=== PATIENT | female | born 1975 | race Caucasian/White ===

== ENCOUNTER 2020-01-19 22:13 | Inpatient (IN) | payer OTHER ==
[2020-01-20] MEDS ORDERED: NALOXONE 0.4 MG/ML 1 ML VIAL IV PRN (00:16)
[2020-01-20] MEDS ORDERED: ACETAMINOPHEN TAB 325 MG TAB PO PRN (00:16)
[2020-01-20] MEDS ORDERED: MORPHINE SULFATE 4 MG/ML SYRINGE IV PRN (00:16)
[2020-01-20] MEDS ORDERED: PANTOPRAZOLE 40 MG/10 ML VIAL IVP ONE (00:18)
[2020-01-20] MEDS: SODIUM CHLORIDE 0.9% 1,000 ML IV SCH ×3 (00:29→17:22)
[2020-01-20] MEDS: SUCRALFATE 1 GM TAB PO SCH ×4 (01:26→17:23)
--- NOTE | 2020-01-20 02:07 | P.HPIM ---
History of Present Illness H&P Date: 01/20/20 Chief Complaint: abd pain , possible GI bleed 44 year old female with history of Yenny-en-Y gastric bypass 2007, and recurrent gastrojujenal ulcers non compliant with follow ups and PPI patient trasnferred to our facility from [facility] as they are at capacity. patient went to ED today, due to worsening nausea, vomiting, tk, and abd pain abd pain upper abd radiating to the chest in the midline. 10/10 in severity, sharp pain, worse with moving and sitting up. denies any SOB, dizziness, lightheadedness, palpitations. pain is waxing and waning , she takes norco for her recent shoulder surgery, and was helping a little. this is chronic pain comes and goes for months now , but worsened over past week, and got even worse over past 2 days. nausea and vomiting, greenish in color, denies blood or coffee ground vomiting. for 2 days now loose bowel movement for few days now, dark in color. patient also is on her period. she denies taking any blood thinners, denies NSAIDs patient was hospitalized a week ago, and was kept in hospital for 2 days, but GI service cleared her for discharge with plans for OP EGD. patient had 2 EGDS done in August and September 2019, where it showed gastrojujenal marginal ulcer which went down in size , from 1 cm to 0.8 cm , with clean base. patient during this most recent hospitalization at the other facility, patient reported running out of PPI with no refills . H Pylori was tested and negative back in august 2019. patient reports some chills, but denies any urinary symptoms, denies URI symptoms. denies any recent travel, denies any contact with confirmed COVID-[address] of the chest and abd done 01/11/2020 showing thickening of the ascending colon with no inflammatory changes. blood work at [facility] showed stable and slightly improving Hgb of 9.7 gm/dl compared to baseline of 8.5 , with evidence of microcytosis , patient known to have iron deficiency anemia , not tolerating PO iron no leukocytosis lipase unremarkable renal and liver function within normal limits electrolytes within normal limits AAS xray showed non obstructive non specific bowel gas pattern patient received 1 L normal saline at [facility] [place] [facility] patient reported cardiac workup done one year ago with negative stress test, she was having SOB at that time, and has family history of heart disease. she is a smoker. Review of Systems Pertinent positives as noted in HPI. All other systems were reviewed and are negative recent right shoulder surgery for rotator cuff injury secondary to fall. 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; History of Any Multi-Drug Resistant Organisms: None Reported Past Surgical History: Bariatric Surgery, Section, Cholecystectomy, Orthopedic Surgery, Tonsillectomy Additional Past Surgical History / Comment(s): yenny-en-y gastric bypass in 2007, c sec x2.; right shoulder sx x2 december 2019; right bunionectomy Past Anesthesia/Blood Transfusion Reactions: No Reported Reaction Past Psychological History: Anxiety, Depression Smoking Status: Current every day smoker Past Alcohol Use History: None Reported Past Drug Use History: None Reported - Past Family History Brother(s) Family Medical History: Myocardial Infarction ([place]) Mother Additional Family Medical History / Comment(s): recently passed from cardiac issues Medications and Allergies Home Medications Medication Instructions Recorded Confirmed Type Acetaminophen [Tylenol] 500 mg PO Q4H PRN 01/20/20 01/20/20 History Escitalopram [Lexapro] 20 mg PO DAILY 01/20/20 01/20/20 History Esomeprazole Magnesium [NexIUM] 40 mg PO BID 01/20/20 01/20/20 History Hydrocodone/Acetaminophen [[place] 1 tab PO Q6HR PRN 01/20/20 01/20/20 History 10-325] Sucralfate [Carafate] 1 gm PO ACHS 01/20/20 01/20/20 History Allergies Allergy/AdvReac Type Severity Reaction Status Date / Time ciprofloxacin [From Cipro] Allergy Rash/Hives Verified 01/19/20 23:54 Physical Exam Vitals: Vital Signs Temp Pulse Resp BP Pulse Ox 01/20/20 00:56 97.8 F 78 18 111/58 98 Intake and Output 01/19/20 01/19/20 01/20/20 14:59 22:59 06:59 Other: Weight 58 kg Constitutional: patient is in moderate pain , and looks uncomfortable due to abd pain, however, talking full sentences and cooperating with interview and exam Eyes: Anicteric sclerae, moist conjunctiva, Pupils equal round reactive to light ENMT: NC/AT Oropharynx clear, no erythema, no exudates Neck: Supple, FROM, no masses, or JVD No carotid bruits No thyromegaly Lungs: Clear to auscultation, good breath sounds throughout Clear to percussion Normal respiratory effort, no accessory muscle use Cardiovascular: Heart regular in rate and rhythm, No murmurs, gallops, or rubs No peripheral edema Abdominal: Soft diffuse tenderness to palpation mainly over upper part of the abd, no guarding, rebound or rigidity Abdomen moving with respiration Normoactive bowel sounds No hepatomegaly, No splenomegaly No palpable mass No abdominal wall hernia noted Skin: Normal temperature, tone, texture, turgor No induration No subcutaneous nodules No rash, lesions No ulcers Extremities: No digital cyanosis No clubbing Pedal pulses intact and symmetrical Radial pulses intact and symmetrical No calf tenderness Psychiatric: Alert and oriented to person, place and time patient looks in pain fair judgement Neuro Muscles Strength 5/5 in all 4 extremities Sensation to light touch grossly present throughout Cranial nerves II-XII grossly intact No focal sensory deficits Lymphatics: no palpable cervical or supraclavicular , or inguinal lymph nodes Thrombosis Risk Factor Assmnt - Choose All That Apply Any of the Below Risk Factors Present?: Yes Each Factor Represents 1 point: Age 41-60 years, History of prior major surgery (<1month) Each Risk Factor Represents 2 Points: Major surgery Thrombosis Risk Factor Assessment Total Risk Factor Score: 4 Thrombosis Risk Factor Assessment Level: Moderate Risk Assessment and Plan Assessment: 44 year old female with history of Yenny-en-Y gastric bypass 2007, and recurrent gastrojujenal ulcers non compliant with follow ups and PPI. recent surgery in december 2019 for right shoulder rotator cuff injury after sustaining a fall. patient transferred to our facility from [facility] due to reaching capacity. patient comes in due to worsening abd pain, known to have gastrojujenal ulcers, with recent brief hospitalization at [facility] around 01/11/2020 however, cleared by GI for discharge on medical therapy with plans for EGD as OP. suspected GIB due to gastrojujenal ulcers, anticipated length of stay > 2 midnights Assessment gastrointestinal bleeding due to gastrojujenal ulcers chronic microcytic anemia at baseline history of Yenny-en-Y gastric bypass 2007 anxiety and depression family history of cardiac disease, patient had negative stress test one year ago plan monitor Hemoglobin IVF hydration with normal saline PPI IV , 80 mg once, then 40 mg BID continue carafate NPO monitor vital signs closely GI consult avoid NSAIDS morphine for pain PRN zofran PRN for N/V check EKG check troponins repeat morning labs resume home meds for depression Preformed a thorough record review from recent hospitalization [facility] hospitalization 01/11/2020 and todays ER care, as summarized in HPI CODE STATUS:full code DVT prophylaxis: mechanical due to GI bleeding Discussed with: Patient, ER, RN Anticipated length of stay > than [address]: home A total of 70 minutes was spent on the care of this complex patient more than 50% of the time was spent in counseling and care coordination.
[2020-01-20] MEDS: MORPHINE SULFATE 4 MG/ML SYRINGE IV PRN ×7 (02:46→22:39)
[2020-01-20] MEDS: ONDANSETRON 4 MG/2 ML VIAL IVP PRN ×2 (08:26→17:23)
[2020-01-20] MEDS: PANTOPRAZOLE 40 MG/10 ML VIAL IVP SCH ×2 (08:26→20:01)
[2020-01-20 08:27] LABS: Anisocytosis Slight; Basophils % (A) 0 %; Eosinophils % (A) 2 %; HCT 30.2 % (34.0-46.0); HGB 8.7 gm/dL (11.4-16.0); Hypochromasia Marked; Lymphocytes # (A) 0.7 k/uL (1.0-4.8); Lymphocytes % (A) 38 %; MCH 24.4 pg (25.0-35.0); MCHC 28.8 g/dL (31.0-37.0); MCV 84.5 fL (80.0-100.0); Mean Platelet Volume 7.9; Monocytes # (A) 0.2 k/uL (0-1.0); Monocytes % (A) 8 %; Neutrophils % (A) 50 %; Platelet Count 270 k/uL (150-450); RBC 3.57 m/uL (3.80-5.40); WBC 1.9 k/uL (3.8-10.6)
[2020-01-20 08:34] LABS: African American GFR (CKD) >90 (>60 ml/min/1.73 sqM); Anion Gap 4 mmol/L; Blood Urea Nitrogen 6 mg/dL (7-17); Calcium 7.8 mg/dL (8.4-10.2); Carbon Dioxide 21 mmol/L (22-30); Chloride 110 mmol/L (98-107); Glucose 82 mg/dL (74-99); Non-African American GFR(CKD) >90 (>60 ml/min/1.73 sqM); Sodium 135 mmol/L (137-145)
[2020-01-20 08:43] LABS: Poikilocytosis (M) Present
[2020-01-20] MEDS: ESCITALOPRAM 20 MG TAB PO SCH (09:21)
[2020-01-20 09:32] LABS: Bilirubin, Delta 0.3 mg/dL (0.0-0.2); Bilirubin,Unconjugated 0.3 mg/dL (0.0-1.1)
[2020-01-20 09:38] LABS: Albumin 2.9 g/dL (3.5-5.0); Total Bilirubin 0.6 mg/dL (0.2-1.3); Total Protein 5.6 g/dL (6.3-8.2)
[2020-01-20] MEDS: NICOTINE 21MG/24HR PATCH TRANSDERM SCH (11:56)
--- NOTE | 2020-01-20 17:10 | P.PN ---
Progress Note - Text 44-year-old seen earlier today here for likely upper GI bleed due to gastrodedunal ulcers and has a chronic anemia microcytic anemia with a hemoglobin today of 8.7 the patient was seen earlier by GI and the patient reports that she will have a EGD tomorrow. We'll recheck her labs tomorrow and continue to follow.
--- NOTE | 2020-01-20 20:11 | CONS ---
CONSULTATION DATE OF DICTATION: 01/20/2020. REQUESTING PHYSICIAN: Dr. Agustina Layne. REASON FOR CONSULTATION: Epigastric pain, nausea, vomiting, and coffee-ground emesis. HISTORY OF PRESENT ILLNESS: The patient is a 44-year-old, pleasant, white female with history of yenny-en-Y gastric bypass surgery in 2007 and history of recurrent gastrojejunal ulcer diagnosed a year ago who is maintained on Nexium as well as Carafate on an outpatient basis presented to the hospital to [facility] yesterday and she was subsequently transferred because of no bed availability locally. She has been complaining of severe epigastric pain for the last one year duration but has been progressively getting worse since she has been on Nexium and Carafate. However, for the last three or four months pain has been progressively getting worse, mostly in the epigastric area radiating to all of the abdomen associated with nausea and vomiting. She had a few episodes of coffee-ground emesis yesterday and she became concerned, came to the ER and subsequently transferred to this hospital. She complains of black, tarry stools for the last two or three days. Denies any NSAID use. Her last EGD was in August 2019 at [facility] and, according to the ER notes, she was noted to have a 1 cm gastrojejunal marginal ulcer noted. PAST MEDICAL HISTORY: Significant for gastroesophageal reflux disease, history of recurrent peptic ulcer disease. PAST SURGICAL HISTORY: , cholecystectomy, gastric bypass surgery, right bunionectomy, right shoulder surgery, and EGD in September 2019. MEDICATIONS: Medications at home include Tylenol, Lexapro, Nexium, [place], and Carafate. ALLERGIES: CIPRO. SOCIAL HISTORY: Current smoker. No alcohol use. FAMILY HISTORY: Brother had coronary artery disease. Mother cardiac issues. REVIEW OF SYSTEMS: CARDIOPULMONARY: She denies any chest pain or shortness of breath. GENITOURINARY: No hematuria or dysuria. MUSCULOSKELETAL: Unremarkable. PSYCHIATRY: Worsening anxiety lately. NEUROLOGY: Unremarkable. ENT/VISION: Unremarkable. CONSTITUTIONAL: No recent weight loss. No fevers or night sweats. GI: As mentioned above. ENDOCRINE: Unremarkable. PHYSICAL EXAMINATION: She appears comfortable. No apparent distress. VITAL SIGNS: Stable. Blood pressure is 98/58, pulse rate 82, temperature 98.3. HEENT: Unremarkable. Conjunctivae pink. Sclerae anicteric. Oral cavity, no lesions. NECK: No JVD or lymph node enlargement. CHEST: Clear to auscultation. HEART: Regular rate and rhythm. ABDOMEN: Soft. There was tenderness in the epigastric area. Mild tenderness in the periumbilical area and the rest of the abdomen also had mild diffuse tenderness but it was soft. No rebound or rigidity. EXTREMITIES: No pedal edema. SKIN: No rashes. NEUROLOGIC: Alert and oriented x3. No focal deficits. LABS: WBC 11.9, hemoglobin 8.7, platelets are 270. BUN and creatinine are 5 and 0.5 respectively. The rest of the labs are within normal limits. Lipase is normal. IMPRESSION: 1. Severe epigastric pain associated with nausea, vomiting, coffee-ground emesis, and black, tarry stools on and off for the last two weeks duration. She states that she has been having persistent epigastric pain since September of last year. Her last upper endoscopy at [facility] was in September 2019 that showed a 1 cm gastrojejunal ulcer in this lady with history of previous gastric bypass surgery, possibly recurrent peptic ulcer disease is being considered. Hemoglobin is 8.6 g/dL. Her baseline hemoglobin is unknown. 2. History of gastric bypass surgery done in 2007. 3. History of anxiety and depression. RECOMMENDATIONS: 1. Continue with Protonix 40 mg twice daily. 2. Start her on clear liquid diet. 3. Repeat CBC in the morning. 4. We will continue with an upper endoscopy tomorrow. I discussed with the patient risks, benefits, and complications of the procedure and she is agreeable to it. Thank you for this consultation. MMODL / IJN: [id number] /
[2020-01-20 23:15] LABS: % Iron Saturation 4.29 (12.00-45.00); Ferritin 11.8 ng/mL (10.0-291.0)
[2020-01-21] MEDS: MORPHINE SULFATE 4 MG/ML SYRINGE IV PRN ×8 (01:30→22:33)
[2020-01-21] MEDS: SODIUM CHLORIDE 0.9% 1,000 ML IV SCH ×3 (01:32→17:49)
[2020-01-21 06:44] LABS: Anisocytosis Slight; Basophils % (A) 0 %; Eosinophils % (A) 2 %; HCT 28.5 % (34.0-46.0); HGB 8.5 gm/dL (11.4-16.0); Hypochromasia Marked; Lymphocytes # (A) 0.7 k/uL (1.0-4.8); Lymphocytes % (A) 40 %; MCHC 29.9 g/dL (31.0-37.0); MCV 80.3 fL (80.0-100.0); Mean Platelet Volume 7.6; Microcytosis Slight; Monocytes # (A) 0.1 k/uL (0-1.0); Monocytes % (A) 8 %; Neutrophils # (A) 0.8 k/uL (1.3-7.7); Neutrophils % (A) 48 %; Platelet Count 262 k/uL (150-450); RBC 3.55 m/uL (3.80-5.40); RDW 18.5 % (11.5-15.5); WBC 1.7 k/uL (3.8-10.6)
[2020-01-21 06:49] LABS: INR 1.1 (<1.2); Prothrombin Time 11.5 sec (9.0-12.0)
[2020-01-21 06:52] LABS: ALT 6 U/L (4-34); AST 21 U/L (14-36); African American GFR (CKD) >90 (>60 ml/min/1.73 sqM); Albumin 2.7 g/dL (3.5-5.0); Alkaline Phosphatase 73 U/L (38-126); Anion Gap 8 mmol/L; Blood Urea Nitrogen <2 mg/dL (7-17); Calcium 7.9 mg/dL (8.4-10.2); Carbon Dioxide 24 mmol/L (22-30); Chloride 104 mmol/L (98-107); Glucose 77 mg/dL (74-99); Magnesium 1.9 mg/dL (1.6-2.3); Non-African American GFR(CKD) >90 (>60 ml/min/1.73 sqM); Phosphorus 4.1 mg/dL (2.5-4.5); Potassium 3.3 mmol/L (3.5-5.1); Sodium 136 mmol/L (137-145); Total Bilirubin 0.2 mg/dL (0.2-1.3); Total Protein 5.3 g/dL (6.3-8.2)
[2020-01-21] MEDS: SUCRALFATE 1 GM TAB PO SCH ×3 (08:16→17:42)
[2020-01-21] MEDS: NICOTINE 21MG/24HR PATCH TRANSDERM SCH (08:19)
[2020-01-21] MEDS: ESCITALOPRAM 20 MG TAB PO SCH (08:20)
[2020-01-21] MEDS: PANTOPRAZOLE 40 MG/10 ML VIAL IVP SCH ×2 (08:20→20:05)
[2020-01-21] MEDS: ONDANSETRON 4 MG/2 ML VIAL IVP PRN (08:26)
[2020-01-21] MEDS ORDERED: LIDOCAINE 1% INJ 10MG/ML (20 ML MDV) ONE (10:03)
[2020-01-21] MEDS ORDERED: MIDAZOLAM 2 MG/2 ML VIAL ONE (10:03)
[2020-01-21] MEDS ORDERED: PROPOFOL 10 MG/ML 20 ML VIAL IV ONE (10:03)
[2020-01-21] MEDS ORDERED: SODIUM CHLORIDE 0.9% 500 ML 500 ML IV ONE (10:07)
[2020-01-21 10:21] LABS: Poikilocytosis (M) Present
--- NOTE | 2020-01-21 10:23 | P.PCN ---
Date of Procedure: 01/21/20 Procedure(s) Performed: BRIEF HISTORY: Patient is a 44-year-old, pleasant, white female, admitted to the hospital with severe epigastric pain associated with nausea vomiting coffee- ground emesis intermittent black stools for the last 3-4 days duration. Has prior history of gastric bypass rectum and marginal ulcer.. PROCEDURE PERFORMED: Esophagogastroduodenoscopy with dilation of the anastomotic stricture. PREOPERATIVE DIAGNOSIS: Severe epigastric pain/nausea vomiting and coffee-ground emesis. IV sedation per anesthesia. PROCEDURE: After informed consent was obtained, the patient was brought into the endoscopy unit. IV sedation was administered by Anesthesia under continuous monitoring. Initially the Olympus GIF-140 video endoscope was inserted into the mouth. Esophagus intubated without any difficulty. It was gradually advanced into the stomach . There was evidence of gastric pouch noted that appeared normal. There was evidence of previous gastric bypass surgery with Susana-en-Y anastomosis. There was a circumferential ulceration noted at the anastomosis with a tight stricture and the scope could not be advanced to the stricture. At this time I proceeded with balloon dilation using the pyloric balloon and was dilated initially with 10 mm followed by 11 mm and 12 mm in a sequential fashion 60 seconds. Findings with dilation was not able to advance the scope beyond the stricture. At this time the gastric pouch was examined and appeared normal. The scope was then withdrawn into the esophagus. The GE junction was located at 39 cm from the incisors. The esophagus appeared normal. There were no erosions or ulcerations seen and the patient tolerated the procedure well. IMPRESSION: 1. Circumferential ulceration at the Susana-en-Y anastomosis with a tight stricture status post balloon dilation using 10-12 mm TTS balloon as described above. 2. Evidence of previous Susana-en-Y gastric bypass surgery. RECOMMENDATIONS: The findings of this examination were discussed with the patient. At this time she'll be started on clear liquid diet. Continue with Protonix 40 mg twice daily. Repeat labs in the a.m..
[2020-01-21] MEDS: POTASSIUM CHLORIDE 10 MEQ in WATER FOR INJECTION 1 100ML.BAG IVPB SCH ×4 (11:01→16:11)
--- NOTE | 2020-01-21 11:50 | P.PN ---
Subjective Progress Note Date: 01/21/20 Patient is admitted at bedside, complain of nausea and abdominal pain. Serum potassium was 3.3 this morning. Hemoglobin at 8.5. Patient hemodynamically stable scheduled to have EGD later today, Objective - Vital Signs Vital signs: Vital Signs Temp 98.6 F 01/21/20 04:59 Pulse 90 01/21/20 04:59 Resp 18 01/21/20 04:59 BP 95/63 01/21/20 04:59 Pulse Ox 94 L 01/21/20 04:59 Intake & Output 01/20/20 01/21/20 01/21/20 18:59 06:59 18:59 Intake Total 960 1380 200 Balance 960 1380 200 Intake: IV 200 Intake, IV Titration 960 1380 Amount Sodium Chloride 0.9% 1, 960 1380 000 ml @ 120 mls/hr IV . Q8H20M [facility] Rx#:[id number] Other: Voiding Method Toilet Toilet Toilet # Voids 3 1 - Exam Constitutional: No acute distress, conversant, appears uncomfortable Eyes: Anicteric sclerae, moist conjunctiva, no lid-lag, PERRLA ENMT: NC/AT,Oropharynx clear, no erythema, exudates Neck:Supple, FROM, no masses, or JVD, No carotid bruits; No thyromegaly Lungs: Clear to auscultation, Clear to percussion, Normal respiratory effort, no accessory muscle use Cardiovascular: Heart regular in rate and rhythm, No murmurs, gallops, or rubs no peripheral edema Abdominal: Soft tender to palpation in midepigastrium, non distended, no guarding, no rebound or rigidity, Normoactive bowel sounds Skin: Normal temperature, tone, texture, turgor, No induration No subcutaneous nodules, No rash, lesions, No ulcers Extremities:No digital cyanosis No clubbing, Pedal pulses intact and symmetrical Radial pulses intact and symmetrical Normal gait and station, No calf tenderness Psychiatric: Alert and oriented to person, place and time, Appropriate affect Intact judgement Neuro: Muscles Strength 5/5 in all 4 extremities, Sensation to light touch grossly present throughout, Cranial nerves II-XII grossly intact. No focal se nsory deficits - Labs CBC & Chem 7: 01/21/20 05:55 01/21/20 05:55 Labs: Abnormal Lab Results - Last 24 Hours (Table) 01/20/20 01/21/20 01/21/20 Range/Units 13:54 05:55 05:55 WBC 1.7 L (3.8-10.6) k/uL RBC 3.55 L (3.80-5.40) m/uL Hgb 8.5 L (11.4-16.0) gm/dL Hct 28.5 L (34.0-46.0) % MCH 24.0 L (25.0-35.0) pg MCHC 29.9 L (31.0-37.0) g/dL RDW 18.5 H (11.5-15.5) % Neutrophils # 0.8 L (1.3-7.7) k/uL Lymphocytes # 0.7 L (1.0-4.8) k/uL Sodium 136 L (137-145) mmol/L Potassium 3.3 L (3.5-5.1) mmol/L BUN <2 L (7-17) mg/dL Calcium 7.9 L (8.4-10.2) mg/dL Iron 10 L (50-170) ug/dL % Saturation 4.29 L (12.00-45.00) Total Protein 5.3 L (6.3-8.2) g/dL Albumin 2.7 L (3.5-5.0) g/dL Assessment and Plan Assessment: Midepigastric pain and nausea * EGD today showing ulceration at the Susana-en-Y anastomosis with a tight stricture status post balloon dilation History of gastrojejunal ulcers * Continue current pain management * Continue PPI therapy Chronic iron deficiency anemia * Hemoglobin relatively stable at 8.7 * No indication for transfusion at this time Disposition * Appreciate GI recommendations continue clear liquid diet
[2020-01-22] MEDS: SODIUM CHLORIDE 0.9% 1,000 ML IV SCH ×2 (03:18→15:24)
[2020-01-22] MEDS: MORPHINE SULFATE 4 MG/ML SYRINGE IV PRN ×5 (03:18→14:14)
[2020-01-22] MEDS: NICOTINE 21MG/24HR PATCH TRANSDERM SCH (08:44)
[2020-01-22] MEDS: PANTOPRAZOLE 40 MG/10 ML VIAL IVP SCH ×2 (08:45→19:56)
[2020-01-22] MEDS: ESCITALOPRAM 20 MG TAB PO SCH (08:45)
[2020-01-22] MEDS: SUCRALFATE 1 GM TAB PO SCH ×3 (08:45→17:27)
[2020-01-22 08:56] LABS: Anisocytosis Slight; HCT 28.1 % (34.0-46.0); HGB 8.5 gm/dL (11.4-16.0); Hypochromasia Marked; MCH 24.2 pg (25.0-35.0); MCHC 30.1 g/dL (31.0-37.0); MCV 80.6 fL (80.0-100.0); Microcytosis Slight; Platelet Count 234 k/uL (150-450); RBC 3.49 m/uL (3.80-5.40); RDW 18.6 % (11.5-15.5); WBC 2.1 k/uL (3.8-10.6)
[2020-01-22 11:30] VITALS: RESP 16
--- NOTE | 2020-01-22 16:08 | PN ---
PROGRESS NOTE DATE OF DICTATION: 01/22/2020 Patient is a 44-year-old white female who was admitted to the hospital with severe abdominal pain associated with nausea, vomiting for the last 2 days duration. She has history of prior gastric bypass surgery with Susana-en-Y anastomosis. She underwent an EGD yesterday which revealed a recurrent marginal ulcer adjoined by anastomosis with severe stricture to the point that the scope could not be advanced. Dilation was performed using 10 to 12 mm balloon yesterday. Patient is feeling somewhat better. She remains on a clear liquid diet. She still has abdominal pain. No further episodes of nausea, vomiting. PHYSICAL EXAMINATION: Appears comfortable, in no apparent distress. Vital signs are stable. Blood pressure is 107/72, pulse rate 60, temperature 98.2. HEENT: Examination unremarkable, conjunctivae are pink, sclerae nonicteric, oral cavity no lesions. NECK: No JVD or lymph node enlargement. CHEST: Clear to auscultation. HEART: Regular rate and rhythm. ABDOMEN: Soft. Mild tenderness in the epigastric area. Bowel sounds are positive. No organomegaly. EXTREMITIES: No pedal edema. SKIN: No rashes. NEUROLOGIC: Alert and oriented x3. No focal deficits. LABS: From today WBC 15.1, hemoglobin 8.5, platelets normal. Basic metabolic panel is within normal limits. IMPRESSION: 1. Severe epigastric pain/nausea, vomiting, status post EGD done yesterday revealed recurrent anastomotic ulcer with anastomotic stricture at the Susana-en-Y anastomosis, status post balloon dilation with some improvement in her symptoms. 2. Anemia, secondary to gastrointestinal bleed. 3. Chronic abdominal pain. RECOMMENDATIONS: 1. Advance diet as tolerated. 2. Continue with Protonix 40 mg twice daily. 3. Carafate 1 g 4 times daily. 4. Pain medications as needed. 5. Avoid NSAIDs. 6. Patient can be discharged home tomorrow with outpatient followup in 2 weeks at which time, based on the symptoms, will consider repeat upper endoscopy with dilation. Thank you for this consultation. MMODL / IJN: [id number] /
[2020-01-22] MEDS ORDERED: HYDROcodone/APAP 10-325MG 1 EACH TAB PO PRN (17:11)
--- NOTE | 2020-01-22 17:19 | P.PN ---
Subjective Progress Note Date: 01/22/20 Principal diagnosis: Abdominal pain This is a 44-year-old female with history of Susana-en-Y gastric bypass 2007, recurrent gastrojejunal ulcers, noncompliant with follow-up. Patient presented with worsening abdominal pain she will was previously hospitalized in the [facility] [place] [facility] Was Cleared for Outpatient Follow-Up. Patient Was Hospitalized on 01/20 patient underwent EGD that showed stricture and ulceration she states that she is still painful reporting pain 7 out of 10 Objective - Vital Signs Vital signs: Vital Signs Temp 98.2 F 01/22/20 11:29 Pulse 60 01/22/20 11:29 Resp 16 01/22/20 11:29 BP 107/72 01/22/20 11:29 Pulse Ox 98 01/22/20 11:29 Intake & Output 01/21/20 01/22/20 01/22/20 18:59 06:59 18:59 Intake Total 880 1380 960 Balance 880 1380 960 Intake: IV 200 Intake, IV Titration 680 1380 960 Amount Potassium Chloride 10 meq 200 In Water For Injection 1 100ml.bag @ 100 mls/hr IVPB Q1HR [facility] Rx#: [id number] Sodium Chloride 0.9% 1, 480 1380 960 000 ml @ 120 mls/hr IV . Q8H20M [facility] Rx#:[id number] Other: Voiding Method Toilet Toilet Toilet # Voids 1 - Constitutional General appearance: Present: cooperative, mild distress - Respiratory Respiratory: bilateral: CTA - Cardiovascular Rhythm: regular - Gastrointestinal General gastrointestinal: Present: normal bowel sounds, tenderness - Integumentary Integumentary: Present: normal - Psychiatric Psychiatric: Present: appropriate affect - Labs CBC & Chem 7: 01/22/20 08:24 01/21/20 05:55 Labs: Abnormal Lab Results - Last 24 Hours (Table) 01/22/20 Range/Units 08:24 WBC 2.1 L (3.8-10.6) k/uL RBC 3.49 L (3.80-5.40) m/uL Hgb 8.5 L (11.4-16.0) gm/dL Hct 28.1 L (34.0-46.0) % MCH 24.2 L (25.0-35.0) pg MCHC 30.1 L (31.0-37.0) g/dL RDW 18.6 H (11.5-15.5) % Assessment and Plan (1) GI bleed Narrative/Plan: Secondary to recurrent gastrojejunal ulcers with stricture status post dilation. Patient underwent endoscopy on January 21. She is currently having her diet advanced and on Carafate and PPI. Discuss overall plan patient she still is painful on [place] will change to Dilaudid optimize pain control discharge planning Peptic ulcer disease disease: Continue as above Anemia: Iron deficiency check CBC no need for transfusion at this time Disposition: Optimize pain control discharge planning Current Visit: Yes Status: Acute Code(s): K92.2 - GASTROINTESTINAL HEMORRHAGE, UNSPECIFIED SNOMED Code(s): 52047802
[2020-01-22] MEDS: HYDROmorphone 1 MG/ML 1 ML SYRINGE IVP PRN ×2 (17:26→21:17)
[2020-01-22] MEDS ORDERED: NON FORMULARY DRUG (Esomeprazole Magnesium [Nexium] 40 MG) PO SCH (21:00)
[2020-01-23] MEDS: SODIUM CHLORIDE 0.9% 1,000 ML IV SCH ×2 (02:08→05:24)
[2020-01-23] MEDS: HYDROmorphone 1 MG/ML 1 ML SYRINGE IVP PRN ×3 (02:08→10:07)
[2020-01-23 06:08] VITALS: BP 110/56; PULSE 70; TEMP 98
[2020-01-23 06:46] LABS: Anisocytosis Slight; Basophils % (A) 0 %; Eosinophils # (A) 0.1 k/uL (0-0.7); Eosinophils % (A) 4 %; HCT 28.9 % (34.0-46.0); HGB 8.5 gm/dL (11.4-16.0); Hypochromasia Marked; Lymphocytes # (A) 1.1 k/uL (1.0-4.8); Lymphocytes % (A) 52 %; MCH 23.9 pg (25.0-35.0); MCHC 29.4 g/dL (31.0-37.0); MCV 81.3 fL (80.0-100.0); Mean Platelet Volume 7.5; Monocytes # (A) 0.1 k/uL (0-1.0); Monocytes % (A) 6 %; Neutrophils # (A) 0.8 k/uL (1.3-7.7); Neutrophils % (A) 38 %; Platelet Count 252 k/uL (150-450); RBC 3.55 m/uL (3.80-5.40); RDW 18.1 % (11.5-15.5)
[2020-01-23] MEDS: SUCRALFATE 1 GM TAB PO SCH (08:47)
[2020-01-23] MEDS: NICOTINE 21MG/24HR PATCH TRANSDERM SCH (08:47)
[2020-01-23] MEDS: ESCITALOPRAM 20 MG TAB PO SCH (08:47)
[2020-01-23] MEDS: PANTOPRAZOLE 40 MG/10 ML VIAL IVP SCH (08:47)
--- NOTE | 2020-01-23 18:33 | P.DS ---
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 Patient was transferred from [facility] as they work capacity. Patient was seen and taken for EGD secondary to nausea and vomiting melena or abdominal pain. Patient described a recent hospitalization and at that time she will there was plan for her to have an outpatient EGD. Patient also had EGDs in August and September 2019. 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 The EGD showed circumferential ulceration of the Susana-en-Y anastomosis with a tight stricture status post balloon dilation with evidence of previous Susana-en-Y gastric bypass surgery. Patient was then started on a liquid diet and to continue with Protonix 40 mg daily patient that was advanced she still complains of nausea and some abdominal pain however she was seen by mom today she wanted to go home she is to follow up with her primary physician with gastroneurology as an outpatient. Patient was given 3 days' supply of Percocet she was given 20 pills Assessment: Patient is alert and oriented times spent in the day of discharge 35 minutes Pertinent Studies: EGD with dilation Patient Condition at Discharge: Stable Plan - Discharge Summary Discharge Rx Participant: No New Discharge Prescriptions: No Action Escitalopram [Lexapro] 20 mg PO DAILY Acetaminophen [Tylenol] 500 mg PO Q4H PRN PRN Reason: Pain Esomeprazole Magnesium [NexIUM] 40 mg PO BID Sucralfate [Carafate] 1 gm PO ACHS Hydrocodone/Acetaminophen [[place] 10-325] 1 tab PO Q6HR PRN PRN Reason: Mild To Moderate Pain Discharge Medication List Acetaminophen [Tylenol] 500 mg PO Q4H PRN 01/20/20 [History] Escitalopram [Lexapro] 20 mg PO DAILY 01/20/20 [History] Esomeprazole Magnesium [NexIUM] 40 mg PO BID 01/20/20 [History] Hydrocodone/Acetaminophen [[place] 10-325] 1 tab PO Q6HR PRN 01/20/20 [History] Sucralfate [Carafate] 1 gm PO ACHS 01/20/20 [History] Follow up Appointment(s)/Referral(s): Beth Mendoza MD [STAFF PHYSICIAN] - 02/02/20 11:00 am Patient Instructions/Handouts: Oxycodone/Acetaminophen (By mouth), Peptic Ulcer (DC), Gastrointestinal Bleeding (DC) Discharge Disposition: HOME SELF-CARE
== END 2020-01-23 11:09 | disposition home or self-care (01) | DRG 379 ==
LOC: 5NMEDONC 23:47
PROVIDERS: ADMIT Internal Medicine; ATTEND Internal Medicine
PROC: 0D7A8ZZ Dilation of Jejunum, Via Natural or Artificial Opening Endoscopic (ICD-10-PCS; principal; 2020-01-21 09:20)
PROC: 0D768ZZ Dilation of Stomach, Via Natural or Artificial Opening Endoscopic (ICD-10-PCS; principal; 2020-01-21 09:20)
DX: K28.4 Chronic or unspecified gastrojejunal ulcer with hemorrhage (principal); D50.0 Iron deficiency anemia secondary to blood loss (chronic); F17.210 Nicotine dependence, cigarettes, uncomplicated; F32.9 Major depressive disorder, single episode, unspecified; F41.9 Anxiety disorder, unspecified; G89.29 Other chronic pain; J44.9 Chronic obstructive pulmonary disease, unspecified; Z79.899 Other long term (current) drug therapy; Z82.49 Family history of ischemic heart disease and other diseases of the circulatory system; Z87.11 Personal history of peptic ulcer disease; Z91.19 Patient's noncompliance with other medical treatment and regimen; Z98.84 Bariatric surgery status; Z90.49 Acquired absence of other specified parts of digestive tract
CPT/HCPCS: 43245; 80048; 80053; 80076; 81025; 82728; 83540; 83550; 83690; 83735; 84100; 84484; 85025; 85027; 85610; 93005

== ENCOUNTER 2020-01-28 14:25 | Inpatient (IN) | payer OTHER ==
[2020-01-28] MEDS ORDERED: SODIUM CHLORIDE 0.9% 500 ML 500 ML IV STA (15:30)
[2020-01-28] MEDS ORDERED: SODIUM CHLORIDE 0.9% 1,000 ML IV STA (15:30)
[2020-01-28] MEDS ORDERED: PANTOPRAZOLE 40 MG/10 ML VIAL IVP STA (15:52)
[2020-01-28] MEDS ORDERED: HYDROmorphone 0.5 MG/0.5 ML SYRINGE IVP STA ×3 (15:53→18:56)
[2020-01-28] MEDS ORDERED: ONDANSETRON 4 MG/2 ML VIAL IVP STA ×2 (16:24→18:16)
[2020-01-28 16:45] LABS: Anisocytosis Slight; Basophils % (A) 0 %; Eosinophils % (A) 0 %; HCT 36.8 % (34.0-46.0); HGB 10.6 gm/dL (11.4-16.0); Hypochromasia Marked; Lymphocytes % (A) 34 %; MCH 23.1 pg (25.0-35.0); MCHC 28.7 g/dL (31.0-37.0); MCV 80.3 fL (80.0-100.0); Mean Platelet Volume 7.6; Microcytosis Slight; Monocytes # (A) 0.2 k/uL (0-1.0); Monocytes % (A) 7 %; Neutrophils # (A) 1.7 k/uL (1.3-7.7); Neutrophils % (A) 57 %; Platelet Count 273 k/uL (150-450); RBC 4.58 m/uL (3.80-5.40); RDW 18.3 % (11.5-15.5)
[2020-01-28] MEDS ORDERED: METOCLOPRAMIDE 5 MG/ML 2 ML VIAL IVP STA (16:51)
[2020-01-28 16:54] LABS: ALT 9 U/L (4-34); AST 24 U/L (14-36); African American GFR (CKD) >90 (>60 ml/min/1.73 sqM); Albumin 3.8 g/dL (3.5-5.0); Alkaline Phosphatase 93 U/L (38-126); Amylase 44 U/L (30-110); Anion Gap 10 mmol/L; Blood Urea Nitrogen 14 mg/dL (7-17); Calcium 8.8 mg/dL (8.4-10.2); Carbon Dioxide 25 mmol/L (22-30); Chloride 102 mmol/L (98-107); Glucose 95 mg/dL (74-99); Non-African American GFR(CKD) >90 (>60 ml/min/1.73 sqM); Potassium 3.1 mmol/L (3.5-5.1); Sodium 137 mmol/L (137-145); Total Bilirubin 0.5 mg/dL (0.2-1.3); Total Protein 6.7 g/dL (6.3-8.2)
[2020-01-28] MEDS ORDERED: POTASSIUM CHLORIDE 20 MEQ in WATER FOR INJECTION 1 100ML.BAG IVPB STA (18:15)
--- NOTE | 2020-01-28 18:16 | ED ---
Abdominal Pain HPI - General Chief Complaint: Abdominal Pain Stated Complaint: NAUSEA Time Seen by Provider: 01/28/20 15:24 Source: patient Mode of arrival: wheelchair Limitations: no limitations - History of Present Illness Initial Comments: 44-year-old female presented for nausea. Patient states she has had uncontrolled nausea and vomiting consistently now for the past 2 weeks. She states after her discharge things seem to get worse. She did have a ballooning of a stricture near the duodenal jejunal area of the small intestines. Patient states she was told by Kelly that this may not have worked. She had appointment scheduled for 2 weeks from now for reevaluation however patient states she can now no longer tolerate any oral food or water, and is experiencing significant epigastric pain that seems to radiate to the left. patient admits to having dark stools. She denies bright red blood in her stools. Patient denies emesis. Patient denies any fevers cough or upper respiratory symptoms. Denies chest pain or shortness of breath. Denies arm or jaw pain. Patient states she has had diarrhea. Remaining review of systems negative upon arrival patient appears uncomfortable and is vomiting. - Related Data Home Medications Medication Instructions Recorded Confirmed Escitalopram [Lexapro] 20 mg PO DAILY 01/20/20 01/28/20 Esomeprazole Magnesium [NexIUM] 40 mg PO BID 01/20/20 01/28/20 Hydrocodone/Acetaminophen [[place] 1 tab PO Q6HR PRN 01/20/20 01/28/20 10-325] Sucralfate [Carafate] 1 gm PO ACHS 01/20/20 01/28/20 Allergies Allergy/AdvReac Type Severity Reaction Status Date / Time ciprofloxacin [From Cipro] Allergy Rash/Hives Verified 01/28/20 19:24 Review of Systems ROS Statement: Those systems with pertinent positive or pertinent negative responses have been documented in the HPI. ROS Other: All systems not noted in ROS Statement are negative. 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; History of Any Multi-Drug Resistant Organisms: None Reported Past Surgical History: Bariatric Surgery, Section, Cholecystectomy, Orthopedic Surgery, Tonsillectomy Additional Past Surgical History / Comment(s): yenny-en-y gastric bypass in 2007, c sec x2.; right shoulder sx x2 december 2019; right bunionectomy Past Anesthesia/Blood Transfusion Reactions: No Reported Reaction Past Psychological History: Anxiety, Depression Smoking Status: Current every day smoker Past Alcohol Use History: None Reported Past Drug Use History: None Reported - Past Family History Brother(s) Family Medical History: Myocardial Infarction ([place]) Mother Additional Family Medical History / Comment(s): recently passed from cardiac issues General Exam - General Exam Comments Initial Comments: General: The patient is awake and alert, appears uncomfortable Eye: Pupils are equal, round and reactive to light, extra-ocular movements are intact. No nystagmus. There is normal conjunctiva bilaterally. No signs of icterus. Ears, nose, mouth and throat: There are moist mucous membranes and no oral lesions. Neck: The neck is supple, there is no tenderness or JVD. Cardiovascular: There is a regular rate and rhythm. No murmur, rub or gallop is appreciated. Respiratory: Lungs are clear to auscultation, respirations are non-labored, breath sounds are equal. No wheezes, stridor, rales, or rhonchi. Gastrointestinal: Soft, non-distended, tender to palpation of the epigastrric region of the abdomen without masses or organomegaly noted. There is no rebound or guarding present. Musculoskeletal: Normal ROM, no tenderness. Strength 5/5. Sensation intact. Radial pulses equal bilaterally 2+. Neurological: A&O x 3. CN II-XII intact grossly, There are no obvious motor or sensory deficits. Coordination appears grossly intact. Speech is normal. Skin: Skin is warm and dry and no rashes or lesions are noted. Psychiatric: Cooperative, appropriate mood & affect, normal judgment. Limitations: no limitations Course Vital Signs 01/28/20 01/28/20 01/28/20 14:45 16:53 18:00 Temperature 98.5 F Pulse Rate 77 88 54 L Respiratory 18 18 18 Rate Blood Pressure 105/69 121/87 101/59 O2 Sat by Pulse 99 97 97 Oximetry 01/28/20 19:03 Temperature Pulse Rate 60 Respiratory 16 Rate Blood Pressure 94/60 O2 Sat by Pulse 96 Oximetry Medical Decision Making - Medical Decision Making 44yo presenting for cc of abdominal pain. Leukopenia. Patient has elevated lipase. Otherwise transaminases within normal limits no elevation of alkaline phosphatase. Patient has no fever. No evidence of obstruction on KUB. Patient passing loose stools. Uncontrolled vomiting in the emergency department despite antibiotics. As well as intractable pain despite multiple doses of IV analg esics. Patient will be admitted for GI consultation, IV fluids for dehydration and pain/nausea/vomiting symptomatic management. Patient is agreeable to admission as is Dr. Barkley who spoke with admitting provider. - Lab Data Result diagrams: 01/28/20 16:25 01/28/20 16:25 Lab Results 01/28/20 01/28/20 01/28/20 Range/Units 16:25 16:25 17:59 WBC 3.0 L (3.8-10.6) k/uL RBC 4.58 (3.80-5.40) m/uL Hgb 10.6 L (11.4-16.0) gm/dL Hct 36.8 (34.0-46.0) % MCV 80.3 (80.0-100.0) fL MCH 23.1 L (25.0-35.0) pg MCHC 28.7 L (31.0-37.0) g/dL RDW 18.3 H (11.5-15.5) % Plt Count 273 (150-450) k/uL Neutrophils % 57 % Lymphocytes % 34 % Monocytes % 7 % Eosinophils % 0 % Basophils % 0 % Neutrophils # 1.7 (1.3-7.7) k/uL Lymphocytes # 1.0 (1.0-4.8) k/uL Monocytes # 0.2 (0-1.0) k/uL Eosinophils # 0.0 (0-0.7) k/uL Basophils # 0.0 (0-0.2) k/uL Hypochromasia Marked Anisocytosis Slight Microcytosis Slight Sodium 137 (137-145) mmol/L Potassium 3.1 L (3.5-5.1) mmol/L Chloride 102 (98-107) mmol/L Carbon Dioxide 25 (22-30) mmol/L Anion Gap 10 mmol/L BUN 14 (7-17) mg/dL Creatinine 0.50 L (0.52-1.04) mg/dL Est GFR (CKD-EPI)AfAm >90 (>60 ml/min/1.73 sqM) Est GFR (CKD-EPI)NonAf >90 (>60 ml/min/1.73 sqM) Glucose 95 (74-99) mg/dL Calcium 8.8 (8.4-10.2) mg/dL Total Bilirubin 0.5 (0.2-1.3) mg/dL AST 24 (14-36) U/L ALT 9 (4-34) U/L Alkaline Phosphatase 93 (38-126) U/L Total Protein 6.7 (6.3-8.2) g/dL Albumin 3.8 (3.5-5.0) g/dL Amylase 44 (30-110) U/L Lipase 309 H (23-300) U/L Urine Color Urine Appearance (Clear) Urine pH (5.0-8.0) Ur Specific [place] (1.001-1.035) Urine Protein (Negative) Urine Glucose (UA) (Negative) Urine Ketones (Negative) Urine Blood (Negative) Urine Nitrite (Negative) Urine Bilirubin (Negative) Urine Urobilinogen (<2.0) mg/dL Ur Leukocyte Esterase (Negative) Urine RBC (0-5) /hpf Urine WBC (0-5) /hpf Ur Squamous Epith Cells (0-4) /hpf Urine Bacteria (None) /hpf Urine Mucus (None) /hpf Urine HCG, Qual (Not Detectd) Stool Occult Blood Negative (Negative) 01/28/20 01/28/20 Range/Units 18:50 18:50 WBC (3.8-10.6) k/uL RBC (3.80-5.40) m/uL Hgb (11.4-16.0) gm/dL Hct (34.0-46.0) % MCV (80.0-100.0) fL MCH (25.0-35.0) pg MCHC (31.0-37.0) g/dL RDW (11.5-15.5) % Plt Count (150-450) k/uL Neutrophils % % Lymphocytes % % Monocytes % % Eosinophils % % Basophils % % Neutrophils # (1.3-7.7) k/uL Lymphocytes # (1.0-4.8) k/uL Monocytes # (0-1.0) k/uL Eosinophils # (0-0.7) k/uL Basophils # (0-0.2) k/uL Hypochromasia Anisocytosis Microcytosis Sodium (137-145) mmol/L Potassium (3.5-5.1) mmol/L Chloride (98-107) mmol/L Carbon Dioxide (22-30) mmol/L Anion Gap mmol/L BUN (7-17) mg/dL Creatinine (0.52-1.04) mg/dL Est GFR (CKD-EPI)AfAm (>60 ml/min/1.73 sqM) Est GFR (CKD-EPI)NonAf (>60 ml/min/1.73 sqM) Glucose (74-99) mg/dL Calcium (8.4-10.2) mg/dL Total Bilirubin (0.2-1.3) mg/dL AST (14-36) U/L ALT (4-34) U/L Alkaline Phosphatase (38-126) U/L Total Protein (6.3-8.2) g/dL Albumin (3.5-5.0) g/dL Amylase (30-110) U/L Lipase (23-300) U/L Urine Color Yellow Urine Appearance Cloudy H (Clear) Urine pH 6.5 (5.0-8.0) Ur Specific [place] 1.042 H (1.001-1.035) Urine Protein 1+ H (Negative) Urine Glucose (UA) Negative (Negative) Urine Ketones 4+ H (Negative) Urine Blood Negative (Negative) Urine Nitrite Negative (Negative) Urine Bilirubin 1+ H (Negative) Urine Urobilinogen 3.0 (<2.0) mg/dL Ur Leukocyte Esterase Moderate H (Negative) Urine RBC 5 (0-5) /hpf Urine WBC 16 H (0-5) /hpf Ur Squamous Epith Cells 6 H (0-4) /hpf Urine Bacteria Rare H (None) /hpf Urine Mucus Many H (None) /hpf Urine HCG, Qual Not Detected (Not Detectd) Stool Occult Blood (Negative) Disposition Clinical Impression: Intractable abdominal pain, Intractable vomiting, Dehydration, Diarrhea, Hypokalemia Disposition[facility] Condition: Stable Is patient prescribed a controlled substance at d/c from ED?: No Time of Disposition: 20:15 Decision to Admit Reason: Admit from EC Decision Date: 01/28/20 Decision Time: 20:15
--- NOTE | 2020-01-28 18:50 | XR ---
EXAMINATION TYPE: XR KUB DATE OF EXAM: 01/28/2020 COMPARISON: NONE HISTORY: Pain TECHNIQUE: Single supine KUB image of the abdomen is obtained FINDINGS: Small bowel demonstrates no evidence for dilatation or air fluid levels. Gas and fecal material is seen in non-distended colon. No convincing evidence for pneumoperitoneum. No unusual calcifications. The lung bases are clear. The osseous structures are intact. IMPRESSION: 1. Overall nonobstructive bowel gas pattern.
[2020-01-28] MEDS ORDERED: NALOXONE 0.4 MG/ML 1 ML VIAL IV PRN (19:02)
[2020-01-28] MEDS ORDERED: SODIUM CHLORIDE 0.9% 1,000 ML IV ONE (19:03)
[2020-01-28 19:05] LABS: Appearance,Urine Cloudy (Clear); Bacteria,Urine Rare /hpf; Bilirubin,Urine 1+ (Negative); Blood,Urine Negative (Negative); Color,Urine Yellow; Glucose,Urine (UA) Negative (Negative); Ketones,Urine 4+ (Negative); Leukocyte Esterase,Urine Moderate (Negative); Mucus,Urine Many /hpf; Nitrite,Urine Negative (Negative); PH, Urine 6.5 (5.0-8.0); Protein,Urine 1+ (Negative); RBC,Urine 5 /hpf (0-5); Specific Gravity,Urine 1.042 (1.001-1.035); Squamous Epithelial Cell,Urine 6 /hpf (0-4); WBC,Urine 16 /hpf (0-5)
[2020-01-28] MEDS: SODIUM CHLORIDE 0.9% 1,000 ML IV SCH (20:53)
[2020-01-28] MEDS ORDERED: MORPHINE SULFATE 2 MG/ML SYRINGE IVP PRN (23:01)
[2020-01-29] MEDS: MORPHINE SULFATE 2 MG/ML SYRINGE IVP PRN ×5 (01:05→11:54)
[2020-01-29] MEDS: SODIUM CHLORIDE 0.9% 1,000 ML IV SCH ×2 (03:54→07:57)
--- NOTE | 2020-01-29 04:51 | P.HPIM ---
History of Present Illness H&P Date: 01/28/20 Patient is a 44-year-old female with a PMH of Susana-en-Y gastric bypass in 2007, chronic anemia, gastric ulcers, and history of GI bleeding presented to the hospital with complaints of abdominal pain, nausea, vomiting, and diarrhea. Of note, the patient was recently admitted to [facility] for similar complaints and underwent an EGD which revealed ulceration at the anastomosis with a tight stricture status post balloon dilatation. GI had recommended liquid diet and Protonix and the patient was subsequently discharged. The patient notes that despite adherence to the medications and dietary changes, she continues to have abdominal pain, epigastric, 8/10, radiating to the left upper quadrant, burning in nature, with associated vomiting and diarrhea. Patient notes that her symptoms essentially persisted from the time of her discharge. The patient otherwise denied dysuria, chest pain, shortness of breath, fever, chills, cough, dizziness, headache, or visual disturbances. She underwent an extensive evaluation in the emergency room with KUB unremarkable, laboratory evaluation showing WBC count of 3.0, hemoglobin 10.6, platelets 273, sodium 137, potassium 3.1, BUN 14, creatinine 0.5, and lipase 29. The patient is being admitted to the medicine service for further management and GI consult. Review of Systems Pertinent positives and negatives as discussed in HPI, a complete review of systems was performed and all other systems are negative. 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 History of Any Multi-Drug Resistant Organisms: None Reported Past Surgical History: Bariatric Surgery, Section, Cholecystectomy, Orthopedic Surgery, Tonsillectomy Additional Past Surgical History / Comment(s): susana-en-y gastric bypass in 2007, c sec x2.; right shoulder sx x2 december 2019; right bunionectomy Past Anesthesia/Blood Transfusion Reactions: No Reported Reaction Past Psychological History: Anxiety, Depression Smoking Status: Current every day smoker Past Alcohol Use History: None Reported Past Drug Use History: None Reported - Past Family History Brother(s) Family Medical History: Myocardial Infarction ([place]) Mother Additional Family Medical History / Comment(s): recently passed from cardiac issues Medications and Allergies Home Medications Medication Instructions Recorded Confirmed Type Escitalopram [Lexapro] 20 mg PO DAILY 01/20/20 01/28/20 History Esomeprazole Magnesium [NexIUM] 40 mg PO BID 01/20/20 01/28/20 History Hydrocodone/Acetaminophen [[place] 1 tab PO Q6HR PRN 01/20/20 01/28/20 History 10-325] Sucralfate [Carafate] 1 gm PO ACHS 01/20/20 01/28/20 History Allergies Allergy/AdvReac Type Severity Reaction Status Date / Time ciprofloxacin [From Cipro] Allergy Rash/Hives Verified 01/28/20 19:24 Physical Exam Vitals: Vital Signs Temp Pulse Pulse Resp BP BP Pulse Ox 01/28/20 21:47 97.8 F 69 18 129/63 95 01/28/20 20:55 98 F 64 18 116/67 97 01/28/20 20:53 98 F 64 18 116/67 97 01/28/20 19:03 60 16 94/60 96 01/28/20 18:00 54 L 18 101/59 97 01/28/20 16:53 88 18 121/87 97 01/28/20 14:45 98.5 F 77 18 105/69 99 Intake and Output 01/28/20 01/28/20 01/29/20 14:59 22:59 06:59 Other: Weight 63.503 kg 63.503 kg General: Uncomfortable-appearing female, non toxic, appears at stated age, normal weight Derm: no unusual rashes/lesions no unusual ecchymoses, warm, dry Head: atraumatic, normocephalic, symmetric Eyes: EOMI, no lid lag, anicteric sclera, pupils equal round reactive to light ENT: Nose and ears atraumatic, no thrush, no pharyngeal erythema Neck: No thyromegaly, no cervical lymphadenopathy, trachea midline, supple Mouth: no lip lesion, mucus membranes moist Cardiovascular: S1S2 reg, no murmur, positive posterior tibial pulse bilateral, no edema, capillary refill less than 2 seconds Lungs: CTA bilateral, no rhonchi, no rales , no accessory muscle use Abdominal: soft, mild epigastric tenderness to palpation, no guarding, no appreciable organomegaly, normal bowel sounds Ext: no gross muscle atrophy, muscle strength 5 out of 5 in all 4 extremities grossly, no contractures, Neuro: CN II-XI grossly intact, light touch intact all 4 extremities, finger to nose within normal limits, Psych: Alert, oriented, appropriate affect Results CBC & Chem 7: 01/28/20 16:25 01/28/20 16:25 Labs: Abnormal Lab Results - Last 24 Hours (Table) 01/28/20 01/28/20 01/28/20 Range/Units 16:25 16:25 18:50 WBC 3.0 L (3.8-10.6) k/uL Hgb 10.6 L (11.4-16.0) gm/dL MCH 23.1 L (25.0-35.0) pg MCHC 28.7 L (31.0-37.0) g/dL RDW 18.3 H (11.5-15.5) % Potassium 3.1 L (3.5-5.1) mmol/L Creatinine 0.50 L (0.52-1.04) mg/dL Lipase 309 H (23-300) U/L Urine Appearance Cloudy H (Clear) Ur Specific [place] 1.042 H (1.001-1.035) Urine Protein 1+ H (Negative) Urine Ketones 4+ H (Negative) Urine Bilirubin 1+ H (Negative) Ur Leukocyte Esterase Moderate H (Negative) Urine WBC 16 H (0-5) /hpf Ur Squamous Epith Cells 6 H (0-4) /hpf Urine Bacteria Rare H (None) /hpf Urine Mucus Many H (None) /hpf Thrombosis Risk Factor Assmnt - Choose All That Apply Any of the Below Risk Factors Present?: Yes Each Factor Represents 1 point: Abnormal pulmonary function (COPD), Age 41-60 years Other Risk Factors: No Thrombosis Risk Factor Assessment Total Risk Factor Score: 2 Thrombosis Risk Factor Assessment Level: Low Risk Assessment and Plan Plan: Abdominal pain with nausea/vomiting likely due to ongoing stricture -The patient had reportedly contacted Dr. Mendoza who had advised the patient that the stricture ballooning may not have worked -GI consult -Nothing by mouth for now -Anti-medics -IV fluids -Pain control -Protonix Diarrhea, unclear etiology -Patient notes that this is acute -Continue with IV fluids for now -GI consulted Hypokalemia -Replace and monitor Chronic normocytic anemia -At baseline -Monitor CBC Abnormal UA -Patient denied dysuria -Hold off on antibiotics at this time DVT prophylaxis -IPCDs The patient is admitted with an anticipated greater than 2 midnight stay for evaluation of abdominal pain CODE STATUS: Full Code Discussed with: Patient Anticipated discharge date: 2-[address]: Home A total of 40 minutes was spent on the care of this complex patient more than 50% of the time was spent in counseling and care coordination.
[2020-01-29] MEDS ORDERED: POTASSIUM CHLORIDE ER 20 MEQ TAB.ER PO SCH (06:00)
[2020-01-29 07:03] LABS: Anisocytosis Slight; Hypochromasia Marked; MCH 23.9 pg (25.0-35.0); MCHC 29.3 g/dL (31.0-37.0); MCV 81.7 fL (80.0-100.0); Platelet Count 184 k/uL (150-450); RBC 3.43 m/uL (3.80-5.40); RDW 17.7 % (11.5-15.5); WBC 2.6 k/uL (3.8-10.6)
[2020-01-29 07:12] LABS: ALT 6 U/L (4-34); AST 18 U/L (14-36); African American GFR (CKD) >90 (>60 ml/min/1.73 sqM); Albumin 2.3 g/dL (3.5-5.0); Alkaline Phosphatase 54 U/L (38-126); Anion Gap 6 mmol/L; Blood Urea Nitrogen 10 mg/dL (7-17); Calcium 7.5 mg/dL (8.4-10.2); Carbon Dioxide 22 mmol/L (22-30); Chloride 110 mmol/L (98-107); Glucose 79 mg/dL (74-99); Non-African American GFR(CKD) >90 (>60 ml/min/1.73 sqM); Potassium 2.9 mmol/L (3.5-5.1); Sodium 138 mmol/L (137-145); Total Bilirubin 0.2 mg/dL (0.2-1.3); Total Protein 4.7 g/dL (6.3-8.2)
[2020-01-29 07:26] LABS: HGB 8.2 gm/dL (11.4-16.0)
[2020-01-29] MEDS: POTASSIUM CHLORIDE 20 MEQ in WATER FOR INJECTION 1 100ML.BAG IVPB SCH ×4 (07:55→11:45)
[2020-01-29] MEDS: PANTOPRAZOLE 40 MG/10 ML VIAL IVP SCH ×2 (07:55→20:37)
[2020-01-29] MEDS: SUCRALFATE 1 GM TAB PO SCH ×4 (07:56→20:37)
[2020-01-29] MEDS: ONDANSETRON 4 MG/2 ML VIAL IVP PRN ×2 (07:56→16:18)
[2020-01-29] MEDS: NICOTINE 21MG/24HR PATCH TRANSDERM SCH (08:50)
[2020-01-29] MEDS ORDERED: ESCITALOPRAM 20 MG TAB PO SCH (09:00)
[2020-01-29] MEDS ORDERED: 0.9% NACL WITH KCL 40 MEQ/L 1,000 ML IV ONE (10:30)
--- NOTE | 2020-01-29 13:55 | P.PN ---
Subjective Patient still complaining of pain. She is not satisfied with her current pain regimen. She denies any nausea or vomiting. Objective - Vital Signs Vital signs: Vital Signs Temp 98.5 F 01/29/20 11:54 Pulse 51 L 01/29/20 11:54 Resp 17 01/29/20 11:54 BP 124/74 01/29/20 11:54 Pulse Ox 98 01/29/20 11:54 Intake & Output 01/28/20 01/29/20 01/29/20 18:59 06:59 18:59 Intake Total 1350 Balance 1350 Weight 63.503 kg 63.503 kg Intake: Intake, IV Titration 1350 Amount Sodium Chloride 0.9% 1, 1350 000 ml @ 150 mls/hr IV . Q6H40M [facility] Rx#:[id number] Other: Voiding Method Toilet - Exam General: The patient is awake and alert, in no distress Eye: there is normal conjunctiva bilaterally. Neck: The neck is supple, there is no JVD. Cardiovascular: Normal S1-S2, no S3-S4, no murmurs. Respiratory: Lungs clear to auscultation bilaterally Gastrointestinal: Abdomen is soft, nontender Musculoskeletal: There is no pedal edema. Neurological:. Speech is normal. Skin: Skin is warm and dry - Labs CBC & Chem 7: 01/29/20 06:22 01/29/20 06:22 Labs: Abnormal Lab Results - Last 24 Hours (Table) 01/28/20 01/28/20 01/28/20 Range/Units 16:25 16:25 18:50 WBC 3.0 L (3.8-10.6) k/uL RBC (3.80-5.40) m/uL Hgb 10.6 L (11.4-16.0) gm/dL Hct (34.0-46.0) % MCH 23.1 L (25.0-35.0) pg MCHC 28.7 L (31.0-37.0) g/dL RDW 18.3 H (11.5-15.5) % Potassium 3.1 L (3.5-5.1) mmol/L Chloride (98-107) mmol/L Creatinine 0.50 L (0.52-1.04) mg/dL Calcium (8.4-10.2) mg/dL Total Protein (6.3-8.2) g/dL Albumin (3.5-5.0) g/dL Lipase 309 H (23-300) U/L Urine Appearance Cloudy H (Clear) Ur Specific [place] 1.042 H (1.001-1.035) Urine Protein 1+ H (Negative) Urine Ketones 4+ H (Negative) Urine Bilirubin 1+ H (Negative) Ur Leukocyte Esterase Moderate H (Negative) Urine WBC 16 H (0-5) /hpf Ur Squamous Epith Cells 6 H (0-4) /hpf Urine Bacteria Rare H (None) /hpf Urine Mucus Many H (None) /hpf 01/29/20 01/29/20 Range/Units 06:22 06:22 WBC 2.6 L (3.8-10.6) k/uL RBC 3.43 L (3.80-5.40) m/uL Hgb 8.2 L D (11.4-16.0) gm/dL Hct 28.0 L (34.0-46.0) % MCH 23.9 L (25.0-35.0) pg MCHC 29.3 L (31.0-37.0) g/dL RDW 17.7 H (11.5-15.5) % Potassium 2.9 L (3.5-5.1) mmol/L Chloride 110 H (98-107) mmol/L Creatinine 0.51 L (0.52-1.04) mg/dL Calcium 7.5 L (8.4-10.2) mg/dL Total Protein 4.7 L (6.3-8.2) g/dL Albumin 2.3 L (3.5-5.0) g/dL Lipase (23-300) U/L Urine Appearance (Clear) Ur Specific [place] (1.001-1.035) Urine Protein (Negative) Urine Ketones (Negative) Urine Bilirubin (Negative) Ur Leukocyte Esterase (Negative) Urine WBC (0-5) /hpf Ur Squamous Epith Cells (0-4) /hpf Urine Bacteria (None) /hpf Urine Mucus (None) /hpf Microbiology - Last 24 Hours (Table) 01/28/20 18:50 Urine Culture - Preliminary Urine,Voided Assessment and Plan Assessment: Abdominal pain with nausea/vomiting likely due to ongoing stricture -The patient had reportedly contacted Dr. Mendoza who had advised the patient that the stricture ballooning may not have worked -GI consult pending -Nothing by mouth for now -Anti-medics -IV fluids -Pain control -Protonix Diarrhea, unclear etiology, resolved -Patient notes that this is acute -Continue with IV fluids for now -GI consulted Hypokalemia -Being replaced Chronic normocytic anemia -At baseline -Monitor CBC Abnormal UA -Patient denied dysuria -Hold off on antibiotics at this time DVT prophylaxis -IPCDs The patient is admitted with an anticipated greater than 2 midnight stay for evaluation of abdominal pain CODE STATUS: Full Code Discussed with: Patient Anticipated discharge date: 2-[address]: Home
[2020-01-29] MEDS: HYDROmorphone 1 MG/ML 1 ML SYRINGE IVP PRN ×2 (16:19→20:37)
--- NOTE | 2020-01-29 20:05 | P.CONS ---
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 The patient's is maintained on PPI therapy with Nexium as well as Carafate in the outpatient setting. She has been seen frequently at [facility] as well as in the [place]. She was initially seen at [facility] a few weeks ago due to bed availability and presented back to the hospital as she reports continued symptoms of abdominal pain, nausea and vomiting since her last visit. At that time the patient had been taken for EGD with findings of an anastomotic site ulcer with associated stricture dilation of the stricture sequentially with a lwewjdx-qbo-whnqi balloon home to 10 mm11 mm12 mm. She is continued to remain symptomatic since that time. She denies any NSAID use. Prior to that her last EGD had been in 08/2019 when she was told of the ulcer. Review of Systems REVIEW OF SYSTEMS: CONSTITUTIONAL: Denies any fevers, chills, weight change or fatigue. CARDIOVASCULAR: Denies any chest pain, palpitations high or low blood pressures RESPIRATORY: Denies any shortness of breath, hemoptysis or cough. GENITOURINARY: No dysuria or hematuria. MUSCULOSKELETAL: No weakness reported. SKIN: Denies any new rashes or lesions, jaundice or pallor. PSYCHIATRIC: Denies any depression or anxiety. NEUROLOGY: Denies headache, denies any new focal deficits. EARS/NOSE/THROAT: No recent hearing change, congestion, nasal discharge or sore throat. EYES: No pain in eyes, discharge or change in vision. GASTROINTESTINAL: As per HPI. 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 History of Any Multi-Drug Resistant Organisms: None Reported Past Surgical History: Bariatric Surgery, Section, Cholecystectomy, Orthopedic Surgery, Tonsillectomy Additional Past Surgical History / Comment(s): susana-en-y gastric bypass in 2007, c sec x2.; right shoulder sx x2 december 2019; right bunionectomy Past Anesthesia/Blood Transfusion Reactions: No Reported Reaction Past Psychological History: Anxiety, Depression Smoking Status: Current every day smoker Past Alcohol Use History: None Reported Past Drug Use History: None Reported - Past Family History Brother(s) Family Medical History: Myocardial Infarction ([place]) Mother Additional Family Medical History / Comment(s): recently passed from cardiac issues Medications and Allergies Home Medications Medication Instructions Recorded Confirmed Type Escitalopram [Lexapro] 20 mg PO DAILY 01/20/20 01/28/20 History Esomeprazole Magnesium [NexIUM] 40 mg PO BID 01/20/20 01/28/20 History Hydrocodone/Acetaminophen [[place] 1 tab PO Q6HR PRN 01/20/20 01/28/20 History 10-325] Sucralfate [Carafate] 1 gm PO ACHS 01/20/20 01/28/20 History Allergies Allergy/AdvReac Type Severity Reaction Status Date / Time ciprofloxacin [From Cipro] Allergy Rash/Hives Verified 01/28/20 19:24 Physical Exam Vitals: Vital Signs Temp Pulse Pulse Resp BP BP Pulse Ox 01/29/20 05:38 98.2 F 67 16 111/55 95 01/28/20 21:47 97.8 F 69 18 129/63 95 01/28/20 20:55 98 F 64 18 116/67 97 01/28/20 20:53 98 F 64 18 116/67 97 01/28/20 19:03 60 16 94/60 96 01/28/20 18:00 54 L 18 101/59 97 01/28/20 16:53 88 18 121/87 97 01/28/20 14:45 98.5 F 77 18 105/69 99 Intake and Output 01/28/20 01/29/20 01/29/20 22:59 06:59 14:59 Intake Total 150 1200 Balance 150 1200 Intake: Intake, IV Titration 150 1200 Amount Sodium Chloride 0.9% 1, 150 1200 000 ml @ 150 mls/hr IV . Q6H40M [facility] Rx#:[id number] Other: Voiding Method Toilet Weight 63.503 kg On physical examination, patient appears comfortable in no apparent distress. HEAD: Normocephalic, atraumatic. EYES: No scleral icterus. No conjunctival injection. MOUTH: No lesions, tongue midline. NECK: Trachea midline, no gross abnormalities. CHEST: Clear to auscultation with no wheezing or rhonchi appreciated. HEART: Regular rate and rhythm. ABDOMEN: Soft, obese. Bowel sounds are positive. No organomegaly. No guarding or rigidity. EXTREMITIES: No pedal edema. SKIN: No rashes, no jaundice. NEUROLOGIC: Alert and oriented x3. No focal deficits. Results CBC & Chem 7: 01/29/20 06:22 01/29/20 06:22 Labs: Abnormal Lab Results - Last 24 Hours (Table) 01/28/20 01/28/20 01/28/20 Range/Units 16:25 16:25 18:50 WBC 3.0 L (3.8-10.6) k/uL RBC (3.80-5.40) m/uL Hgb 10.6 L (11.4-16.0) gm/dL Hct (34.0-46.0) % MCH 23.1 L (25.0-35.0) pg MCHC 28.7 L (31.0-37.0) g/dL RDW 18.3 H (11.5-15.5) % Potassium 3.1 L (3.5-5.1) mmol/L Chloride (98-107) mmol/L Creatinine 0.50 L (0.52-1.04) mg/dL Calcium (8.4-10.2) mg/dL Total Protein (6.3-8.2) g/dL Albumin (3.5-5.0) g/dL Lipase 309 H (23-300) U/L Urine Appearance Cloudy H (Clear) Ur Specific [place] 1.042 H (1.001-1.035) Urine Protein 1+ H (Negative) Urine Ketones 4+ H (Negative) Urine Bilirubin 1+ H (Negative) Ur Leukocyte Esterase Moderate H (Negative) Urine WBC 16 H (0-5) /hpf Ur Squamous Epith Cells 6 H (0-4) /hpf Urine Bacteria Rare H (None) /hpf Urine Mucus Many H (None) /hpf 01/29/20 01/29/20 Range/Units 06:22 06:22 WBC 2.6 L (3.8-10.6) k/uL RBC 3.43 L (3.80-5.40) m/uL Hgb 8.2 L D (11.4-16.0) gm/dL Hct 28.0 L (34.0-46.0) % MCH 23.9 L (25.0-35.0) pg MCHC 29.3 L (31.0-37.0) g/dL RDW 17.7 H (11.5-15.5) % Potassium 2.9 L (3.5-5.1) mmol/L Chloride 110 H (98-107) mmol/L Creatinine 0.51 L (0.52-1.04) mg/dL Calcium 7.5 L (8.4-10.2) mg/dL Total Protein 4.7 L (6.3-8.2) g/dL Albumin 2.3 L (3.5-5.0) g/dL Lipase (23-300) U/L Urine Appearance (Clear) Ur Specific [place] (1.001-1.035) Urine Protein (Negative) Urine Ketones (Negative) Urine Bilirubin (Negative) Ur Leukocyte Esterase (Negative) Urine WBC (0-5) /hpf Ur Squamous Epith Cells (0-4) /hpf Urine Bacteria (None) /hpf Urine Mucus (None) /hpf Microbiology - Last 24 Hours (Table) 01/28/20 18:50 Urine Culture - Preliminary Urine,Voided Abdominal x-ray: report reviewed (X-ray of the abdomen with nonobstructive bowel gas pattern) Assessment and Plan (1) Ulcer at site of surgical anastomosis following bypass of stomach Narrative/Plan: 44-year-old female with a past medical history significant for a Susana-en-Y g astric bypass performed in [place] in 2007 who is a known history of a anastomotic site ulcer diagnosed last year who is been seen on multiple occasions for symptoms of abdominal pain, nausea and vomiting. On her last hospitalization EGD was significant for an anastomotic site ulcer with ssociated stenosis which was dilated with a ceebmhx-plh-jwnra balloon dilator sequentially up to 12 mm. She returns back to the hospital with similar complaints of nausea, vomiting and abdominal pain. Current Visit: Yes Status: Acute Code(s): K28.9 - GASTROJEJUNAL ULCER, UNSP ACUTE OR CHR, W/O HEMOR OR PERF SNOMED Code(s): 374692890 (2) Nausea and vomiting Current Visit: Yes Status: Acute Code(s): R11.2 - NAUSEA WITH VOMITING, UNSPECIFIED SNOMED Code(s): 43420969 (3) Intractable abdominal pain Current Visit: Yes Status: Acute Code(s): R10.9 - UNSPECIFIED ABDOMINAL PAIN SNOMED Code(s): 76826332 Plan: Supportive care Okay for clear liquid diet Continue PPI therapy Nothing by mouth after midnight We'll plan for EGD tomorrow for further evaluation Given the chronic nature of the patient's symptoms and limited intervention which can be performed endoscopically, the patient would likely benefit from follow-up with a surgeon either prior to discharge or in the outpatient setting Thank you for allowing us to participate in the care of the patient we will continue to follow
[2020-01-30] MEDS: HYDROmorphone 1 MG/ML 1 ML SYRINGE IVP PRN ×5 (00:41→19:34)
[2020-01-30 07:24] LABS: Anisocytosis Slight; HCT 30.2 % (34.0-46.0); Hypochromasia Marked; MCH 24.9 pg (25.0-35.0); MCHC 29.8 g/dL (31.0-37.0); MCV 83.4 fL (80.0-100.0); Mean Platelet Volume 7.2; Platelet Count 189 k/uL (150-450); RBC 3.62 m/uL (3.80-5.40); RDW 17.9 % (11.5-15.5); WBC 2.4 k/uL (3.8-10.6)
[2020-01-30 07:42] LABS: ALT 7 U/L (4-34); AST 20 U/L (14-36); African American GFR (CKD) >90 (>60 ml/min/1.73 sqM); Albumin 2.5 g/dL (3.5-5.0); Alkaline Phosphatase 61 U/L (38-126); Anion Gap 7 mmol/L; Blood Urea Nitrogen 3 mg/dL (7-17); Carbon Dioxide 26 mmol/L (22-30); Chloride 107 mmol/L (98-107); Glucose 85 mg/dL (74-99); Non-African American GFR(CKD) >90 (>60 ml/min/1.73 sqM); Potassium 3.2 mmol/L (3.5-5.1); Sodium 140 mmol/L (137-145); Total Bilirubin 0.2 mg/dL (0.2-1.3)
[2020-01-30] MEDS: NICOTINE 21MG/24HR PATCH TRANSDERM SCH (08:07)
[2020-01-30] MEDS: SUCRALFATE 1 GM TAB PO SCH ×4 (08:08→19:25)
[2020-01-30] MEDS: PANTOPRAZOLE 40 MG/10 ML VIAL IVP SCH ×2 (08:08→19:22)
[2020-01-30] MEDS ORDERED: PROPOFOL 10 MG/ML 20 ML VIAL IV ONE (09:34)
[2020-01-30] MEDS ORDERED: LIDOCAINE 1% INJ 10MG/ML (20 ML MDV) ONE (09:34)
[2020-01-30] MEDS ORDERED: HYDROmorphone (PF) 1 MG/ML ONE (09:34)
[2020-01-30] MEDS ORDERED: IV FLUID CONTINUATION 1,000 ML IV ONE ×2 (09:36)
[2020-01-30] MEDS ORDERED: POTASSIUM CHLORIDE 20 MEQ in WATER FOR INJECTION 1 100ML.BAG IVPB ONE (10:00)
--- NOTE | 2020-01-30 10:11 | P.PCN ---
Date of Procedure: 01/30/20 Description of Procedure: BRIEF HISTORY: Patient is a 44-year-old female with a history of Susana-en-Y gastric bypass in 2007 and a known anastomotic site ulcer and stricture. Patient reports EGD in 08/2019 with diagnosis of anastomotic site stricture. She presented to the hospital 2 weeks ago with complaints of nausea, vomiting, epigastric abdominal pain and melena. She was taken for EGD with findings of an anastomotic site ulcer and stricture approximately 6 mm in diameter. This was dilated with a pyloric balloon sequentially to 10 mm11 mm12 mm. She presented back to the hospital with similar complaints of nausea, vomiting and abdominal pain. PROCEDURE PERFORMED: Esophagogastroduodenoscopy. PREOPERATIVE DIAGNOSIS: Epigastric abdominal pain, nausea vomiting IV sedation per anesthesia. PROCEDURE: After informed consent was obtained, the patient was brought into the endoscopy unit. IV sedation was administered by Anesthesia under continuous monitoring. Initially the Olympus GIF-190 video endoscope was inserted into the mouth. Esophagus intubated without any difficulty. It was gradually advanced into the stomach . There was evidence of gastric pouch noted that appeared normal. There was evidence of previous gastric bypass surgery with Susana-en-Y anastomosis. There was a circumferential ulceration noted at the anastomosis with a tight stricture and the scope could not be advanced to the stricture. the stricture measured approximately 2-3 mm in size and appeared to be worsened from prior endoscopy. At this time the scope was withdrawn through the esophagus which appeared normal. The patient tolerated the procedure well. IMPRESSION: 1. Circumferential ulceration at the Susana-en-Y anastomosis with a tight stricture. 2. Evidence of previous Susana-en-Y gastric bypass surgery. RECOMMENDATIONS: The findings of this examination were discussed with the patient. Okay for ice chips and sips of water, however patient should otherwise be nothing by mouth until surgical evaluation. Bariatric surgery has been consulted for further recommendations.
[2020-01-30] MEDS ORDERED: POTASSIUM CHLORIDE ER 20 MEQ TAB.ER PO STA (10:18)
--- NOTE | 2020-01-30 14:52 | P.GSCN ---
History of Present Illness Consult date: 01/30/20 History of present illness: CHIEF COMPLAINT: Intractable nausea vomiting HISTORY OF PRESENT ILLNESS: The patient is a 44-year-old female who presented to the hospital with intractable nausea and vomiting ongoing at least for the last 2-4 weeks. Patient has had all prior management of her symptoms including gastrojejunal strictured performed at [facility] where upper endoscopy and balloon dilation was done, 3 weeks ago. Patient reports having a gastric bypass in 2007, now 12 years ago while in the . She has not followed with any bariatric provider in 12 years. She reports developing troubles with swallowing ongoing for at least 4 months since September 2019. She was initially managed for these same symptoms at [facility] as well. She reports chronic smoking for 25 years including during this timeframe. She had her last upper endoscopy with dilation by gastroenterology team 2 weeks ago. Patient was sent home on Carafate including Protonix. She returned back to the hospital with similar symptoms. This morning she had an attempted upper endoscopy performed by gastroenterology team with findings of complete obstruction of her gastrojejunal anastomosis. PAST MEDICAL HISTORY: See list. PAST SURGICAL HISTORY: See list. MEDICATIONS: See list. ALLERGIES: See list. SOCIAL HISTORY: See list. FAMILY HISTORY: See list. REVIEW OF ORGAN SYSTEMS: CONSTITUTIONAL: No fevers or chills. Has intentional weight loss secondary to gastric bypass over 50 pounds EYES: Denies any trouble with vision. No glasses. HEENT: No difficulties with hearing. No nosebleeds. Has difficulty swallowing. RESPIRATORY: Denies pneumonia. Denies any troubles with breathing or dyspnea on exertion. CARDIOVASCULAR: Denies any chest pain, palpitations, or recent heart attacks. GASTROINTESTINAL: Has intractable nausea vomiting over 4 months. Has history of GI bleed. GENITOURINARY: Denies any blood in urine or increased urinary frequency. NEUROLOGICAL: Denies any numbness or tingling along the distal extremities. No seizure disorders or headaches. MUSCULOSKELETAL: Has back pain, stiffness or joint arthritis. SKIN: No current skin cancer. No rash. PSYCHIATRIC: Has depression. No suicidal thoughts. Has anxiety. ENDOCRINE: Denies current thyroid disorders. Denies any blood sugar glucose intolerance. HEME/LYMPHATIC: Denies any lumps and bumps around the neck. No recent deep venous thrombosis. ALLERGY/IMMUNOLOGY: No immunoglobulin therapy. No immune deficiencies. BREAST: Denies current breast lumps, pain or nipple discharge. PHYSICAL EXAM: VITALS: Reviewed CONSTITUTIONAL: Well developed and in no acute distress. EYES: Conjuctivae without sclera icterus. Extraocular movements grossly intact. HEAD, EARS, NOSE, THROAT: Moist buccal mucosa. Head is atraumatic, normocephalic. Hears conversational speech. No nasal drainage. Poor dentition. NECK: Supple. No JV distention. No thyroidomegaly. RESPIRATORY: Non-labored respirations and equal bilateral excursions. CARDIOVASCULAR: Regular rate and rhythm. Extremities without moderate edema. Palpable 2+ radial pulses. ABDOMEN: Soft. Non-tender. Nondistended. LYMPH: No neck lymphadenopathy. MUSCULOSKELETAL: Nail and fingers with good capillary refill. SKIN: Warm and well perfused with good skin turgor. NEUROLOGIC: Cranial nerves II through XII grossly intact. No focal or lateralizing signs. PSYCH: Appropriate affect. Alert and oriented to person, place and time. Displays appropriate insight. CLINCAL LABS: Reviewed. Hemoglobin 8.2 on admission. White count 2.6 on admission. Potassium low at 2.6. RECORDS: previous old records reviewed from [facility] from January 09 consistent with treatment of stricture with EGD and balloon dilation. MEDICAL: EGD report also reviewed consistent last 2-3 mm aperture of gastrojejunal stricture. Images also reviewed. ASSESSMENT: 1. Intractable nausea vomiting 2. Chronic tobacco abuse 3. Chronic gastrojejunal stricture with ulcer 4. Chronic pain syndrome PLAN: 1. Recommend testing for coronavirus this patient presents with intractable nausea vomiting including at least 3 hospitalizations less than 3 weeks with high risk exposure 2. With the severity of her chronic stricture and inability to dilate at this institution, recommend transfer to tertiary care center 3. In the interim, intravenous hydration 4. Recommend correction of electrolyte dyscrasias including hypokalemia. 5. In summary, she's had prior scope early in the month with attempted dilation per records reviewed 3 weeks ago. Secondary to severe obstruction and complexity of case, recommend transfer to tertiary care center for additional management. Above findings also discussed with hospitalist team and patient Thank you for this kind consultation. 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 History of Any Multi-Drug Resistant Organisms: None Reported Past Surgical History: Bariatric Surgery, Section, Cholecystectomy, Orthopedic Surgery, Tonsillectomy Additional Past Surgical History / Comment(s): yenny-en-y gastric bypass in 2007, c sec x2.; right shoulder sx x2 december 2019; right bunionectomy Past Anesthesia/Blood Transfusion Reactions: No Reported Reaction Past Psychological History: Anxiety, Depression Smoking Status: Current every day smoker Past Alcohol Use History: None Reported Past Drug Use History: None Reported - Past Family History Brother(s) Family Medical History: Myocardial Infarction ([place]) Mother Additional Family Medical History / Comment(s): recently passed from cardiac issues Medications and Allergies Home Medications Medication Instructions Recorded Confirmed Type Escitalopram [Lexapro] 20 mg PO DAILY 01/20/20 01/28/20 History Esomeprazole Magnesium [NexIUM] 40 mg PO BID 01/20/20 01/28/20 History Hydrocodone/Acetaminophen [[place] 1 tab PO Q6HR PRN 01/20/20 01/28/20 History 10-325] Sucralfate [Carafate] 1 gm PO ACHS 01/20/20 01/28/20 History Allergies Allergy/AdvReac Type Severity Reaction Status Date / Time ciprofloxacin [From Cipro] Allergy Rash/Hives Verified 01/28/20 19:24 Surgical - Exam Vital Signs Temp Pulse Resp BP Pulse Ox 98.5 F 77 18 105/69 99 01/28/20 14:45 01/28/20 14:45 01/28/20 14:45 01/28/20 14:45 01/28/20 14:45 Results - Labs 01/30/20 06:28 01/30/20 06:28 Abnormal Lab Results - Last 24 Hours (Table) 01/30/20 01/30/20 Range/Units 06:28 06:28 WBC 2.4 L (3.8-10.6) k/uL RBC 3.62 L (3.80-5.40) m/uL Hgb 9.0 L (11.4-16.0) gm/dL Hct 30.2 L (34.0-46.0) % MCH 24.9 L (25.0-35.0) pg MCHC 29.8 L (31.0-37.0) g/dL RDW 17.9 H (11.5-15.5) % Potassium 3.2 L (3.5-5.1) mmol/L BUN 3 L (7-17) mg/dL Creatinine 0.51 L (0.52-1.04) mg/dL Calcium 8.0 L (8.4-10.2) mg/dL Total Protein 5.0 L (6.3-8.2) g/dL Albumin 2.5 L (3.5-5.0) g/dL Microbiology - Last 24 Hours (Table) 01/28/20 18:50 Urine Culture - Preliminary Urine,Voided Gram Neg Bacilli Gram Neg Bacilli#2 Diabetes panel 01/30/20 Range/Units 06:28 Sodium 140 (137-145) mmol/L Potassium 3.2 L (3.5-5.1) mmol/L Chloride 107 (98-107) mmol/L Carbon Dioxide 26 (22-30) mmol/L BUN 3 L (7-17) mg/dL Creatinine 0.51 L (0.52-1.04) mg/dL Glucose 85 (74-99) mg/dL Calcium 8.0 L (8.4-10.2) mg/dL AST 20 (14-36) U/L ALT 7 (4-34) U/L Alkaline Phosphatase 61 (38-126) U/L Total Protein 5.0 L (6.3-8.2) g/dL Albumin 2.5 L (3.5-5.0) g/dL Calcium panel 01/30/20 Range/Units 06:28 Calcium 8.0 L (8.4-10.2) mg/dL Albumin 2.5 L (3.5-5.0) g/dL Pituitary panel 01/30/20 Range/Units 06:28 Sodium 140 (137-145) mmol/L Potassium 3.2 L (3.5-5.1) mmol/L Chloride 107 (98-107) mmol/L Carbon Dioxide 26 (22-30) mmol/L BUN 3 L (7-17) mg/dL Creatinine 0.51 L (0.52-1.04) mg/dL Glucose 85 (74-99) mg/dL Calcium 8.0 L (8.4-10.2) mg/dL Adrenal panel 04/24/20 Range/Units 06:28 Sodium 140 (137-145) mmol/L Potassium 3.2 L (3.5-5.1) mmol/L Chloride 107 (98-107) mmol/L Carbon Dioxide 26 (22-30) mmol/L BUN 3 L (7-17) mg/dL Creatinine 0.51 L (0.52-1.04) mg/dL Glucose 85 (74-99) mg/dL Calcium 8.0 L (8.4-10.2) mg/dL Total Bilirubin 0.2 (0.2-1.3) mg/dL AST 20 (14-36) U/L ALT 7 (4-34) U/L Alkaline Phosphatase 61 (38-126) U/L Total Protein 5.0 L (6.3-8.2) g/dL Albumin 2.5 L (3.5-5.0) g/dL Assessment and Plan (1) 2018 novel coronavirus disease (COVID-19) Current Visit: Yes Status: Acute Code(s): U07.1 - COVID-19 SNOMED Code(s): 037603167 (2) Coronavirus infection Current Visit: Yes Status: Acute Code(s): B34.2 - CORONAVIRUS INFECTION, UNSPECIFIED SNOMED Code(s): 218946474 (3) Gastrojejunal ulcer with hemorrhage and obstruction Current Visit: Yes Status: Acute Code(s): K28.4 - CHRONIC OR UNSPECIFIED GASTROJEJUNAL ULCER WITH HEMORRHAGE SNOMED Code(s): 74688178 (4) Intractable vomiting Current Visit: Yes Status: Acute Code(s): R11.10 - VOMITING, UNSPECIFIED SNOMED Code(s): 353961063 (5) Nausea and vomiting Current Visit: Yes Status: Acute Code(s): R11.2 - NAUSEA WITH VOMITING, UNSPECIFIED SNOMED Code(s): 56103379
[2020-01-30] MEDS: DEXTROSE 5% IN WATER 1,000 ML with POTASSIUM CHLORIDE 40 MEQ IV SCH (18:08)
--- NOTE | 2020-01-30 20:05 | P.PN ---
Subjective Progress Note Date: 01/30/20 (delayed charting seen at 1230) Principal diagnosis: abdominal pain Patient is a 44-year-old female past medical history rheumatoid gastric bypass in 2007 with chronic anastomotic ulcer, gastric ulcers, and prior GI bleed who presented to the hospital with complaints of abdominal pain, nausea, vomiting, and diarrhea. Of note the patient was hospitalized here from 01/18 through 01/22 with the same complaints (she had been transferred here from [place] as they had no bed availability) at that point in time she underwent an EGD was found to have an anastomotic ulcer with stricture and underwent balloon dilation. On arrival to the ER this time she was found to have a hemoglobin of 10.6 and a low potassium of 3.1. Due to her pain and she was subsequently admitted for further monitoring. She had a KUB which showed normal PATTERN. She was seen by GI. EGD was attempted on stricture process and consult surgery. Surgery recommended transfer was therefore called that she is tired interactions with GI at that facility. Case was discussed with him at home who recommended proceeding with an upper GI to see if she was having any passage of the barium, clear liquid diet, and PPI. Patient examined at bedside. She complains of nausea and abdominal pain. She has not had vomiting. He is also asking about needed. No chest pain or shortness of breath. She is feeling frustrated about not being able to eat. Objective - Vital Signs Vital signs: Vital Signs Temp 98.2 F 01/30/20 16:10 Pulse 64 01/30/20 16:10 Resp 17 01/30/20 16:10 BP 123/79 01/30/20 16:10 Pulse Ox 99 01/30/20 16:10 Intake & Output 01/29/20 01/30/20 01/30/20 18:59 06:59 18:59 Intake Total 1540 300 930 Balance 1540 300 930 Intake: IV 300 Intake, IV Titration 1300 300 600 Amount 0.9% NaCl with KCl 40 Meq 300 /l 1,000 ml @ 100 mls/hr IV .Q10H [facility] Rx#: [id number] IV Fluid Continuation 1, 500 000 ml @ 0 mls/hr IV .STK -MED [facility] Rx#:[id number] Potassium Chloride 20 meq 100 In Water For Injection 1 100ml.bag @ 50 mls/hr IVPB [facility] Rx#: [id number] Potassium Chloride 20 meq 100 In Water For Injection 1 100ml.bag @ 50 mls/hr IVPB Q1H [facility] Rx#: [id number] Sodium Chloride 0.9% 1, 1200 000 ml @ 150 mls/hr IV . Q6H40M [facility] Rx#:[id number] Oral 240 30 Other: Voiding Method Toilet Toilet Toilet # Voids 2 2 3 - Exam General: non toxic, no distress, appears at stated age Derm: warm, dry Head: atraumatic, normocephalic, symmetric Eyes: EOMI, no lid lag, anicteric sclera Mouth: no lip lesion, mucus membranes moist Cardiovascular: S1S2 reg, no murmur, positive posterior tibial pulse bilateral, Lungs: CTA bilateral, no rhonchi, no rales , no accessory muscle use Abdominal: soft, +tender to palpation diffusely, no guarding, no appreciable organomegaly Ext: no gross muscle atrophy, no edema, no contractures Neuro: CN II-XI grossly intact, no focal neuro deficits Psych: Alert, oriented, appropriate affect - Labs CBC & Chem 7: 01/30/20 06:28 01/30/20 06:28 Labs: Abnormal Lab Results - Last 24 Hours (Table) 01/30/20 01/30/20 01/30/20 Range/Units 06:28 06:28 14:10 WBC 2.4 L (3.8-10.6) k/uL RBC 3.62 L (3.80-5.40) m/uL Hgb 9.0 L (11.4-16.0) gm/dL Hct 30.2 L (34.0-46.0) % MCH 24.9 L (25.0-35.0) pg MCHC 29.8 L (31.0-37.0) g/dL RDW 17.9 H (11.5-15.5) % Potassium 3.2 L (3.5-5.1) mmol/L BUN 3 L (7-17) mg/dL Creatinine 0.51 L (0.52-1.04) mg/dL Calcium 8.0 L (8.4-10.2) mg/dL Total Protein 5.0 L (6.3-8.2) g/dL Albumin 2.5 L (3.5-5.0) g/dL Coronavirus (PCR) Detected A (Not Detectd) Microbiology - Last 24 Hours (Table) 01/28/20 18:50 Urine Culture - Preliminary Urine,Voided Gram Neg Bacilli Gram Neg Bacilli#2 Assessment and Plan Assessment: Intractable abdominal pain and nausea secondary to anastomotic ulcer and stricture -Check upper GI barium study -Surgery and GI recommendations appreciated. Discussed with Dr. Garcia, Dr. Salmeron, and physician Dr. Hua for [facility] [phone] - Pain meds - Antiemetics COVID 19 URI - droplet and contact - supportive care. Diarrhea, unclear etiology -Patient notes that this is acute -Continue with IV fluids for now -GI consulted Hypokalemia -Replace - recheck in AM with Mg Chronic normocytic anemia -At baseline -Monitor CBC DVT prophylaxis: SCDs Discussed with: patient, nursing, Dr. Salmeron, Dr.. Garcia, [facility] GI Anticipated discharge: 3-[address]: home vs transfer A total of 90 minutes was spent on the care of this complex patient more than 50% of the time was spent in counseling and care coordination.
[2020-01-31] MEDS: HYDROmorphone 1 MG/ML 1 ML SYRINGE IVP PRN ×6 (00:01→21:33)
[2020-01-31] MEDS: DEXTROSE 5% IN WATER 1,000 ML with POTASSIUM CHLORIDE 40 MEQ IV SCH ×2 (04:23→18:19)
[2020-01-31] MEDS: SUCRALFATE 1 GM TAB PO SCH ×4 (07:42→21:32)
[2020-01-31 08:08] LABS: Anisocytosis Slight; HCT 30.8 % (34.0-46.0); HGB 9.3 gm/dL (11.4-16.0); Hypochromasia Marked; MCH 24.8 pg (25.0-35.0); MCHC 30.3 g/dL (31.0-37.0); MCV 81.7 fL (80.0-100.0); Mean Platelet Volume 7.8; Platelet Count 233 k/uL (150-450); RBC 3.76 m/uL (3.80-5.40); WBC 2.9 k/uL (3.8-10.6)
[2020-01-31 08:20] LABS: ALT 7 U/L (4-34); AST 23 U/L (14-36); African American GFR (CKD) >90 (>60 ml/min/1.73 sqM); Albumin 2.6 g/dL (3.5-5.0); Alkaline Phosphatase 65 U/L (38-126); Anion Gap 3 mmol/L; Blood Urea Nitrogen <2 mg/dL (7-17); Calcium 8.1 mg/dL (8.4-10.2); Carbon Dioxide 29 mmol/L (22-30); Chloride 102 mmol/L (98-107); Glucose 86 mg/dL (74-99); Magnesium 1.8 mg/dL (1.6-2.3); Non-African American GFR(CKD) >90 (>60 ml/min/1.73 sqM); Phosphorus 3.8 mg/dL (2.5-4.5); Potassium 3.9 mmol/L (3.5-5.1); Sodium 134 mmol/L (137-145); Total Bilirubin 0.4 mg/dL (0.2-1.3); Total Protein 5.2 g/dL (6.3-8.2)
[2020-01-31] MEDS: PANTOPRAZOLE 40 MG/10 ML VIAL IVP SCH ×2 (09:01→21:34)
[2020-01-31] MEDS: NICOTINE 21MG/24HR PATCH TRANSDERM SCH (09:01)
--- NOTE | 2020-01-31 14:29 | FL ---
EXAMINATION TYPE: FL UGI w esophagus DATE OF EXAM: 01/31/2020 COMPARISON: KUB 01/28/2020 HISTORY: 44-year-old female possible esophageal obstruction, severe reflux and vomiting for 3 weeks, unable to hold food down. Patient reports recent endoscopy showing a tight passage. Total fluoroscopy time: 2.2 minutes. Total images: 31. TECHNIQUE: A single contrast esophagram and UGI study is performed. FINDINGS: Thin barium was utilized due to patient's history of prior Susana-en-Y gastric bypass. The swallowing mechanism is normal and hypopharyngeal anatomy is preserved. The cervical and thoraci c portions have a normal course and caliber and normal motility. There is satisfactory passage across the GE junction into the gastric remnant but with progressive po oling up to the mid chest level after only 3 consecutive swallows. Recurrent episodes of intraesophag eal reflux are demonstrated. There appears to be a high-grade narrowing at the gastrojejunostomy. Gradual passage of thin barium i s visualized. IMPRESSION: 1. Unremarkable single contrast exam of the esophagus. 2. Status post Susana-en-Y gastric bypass with high-grade narrowing at the gastrojejunostomy. Gradual p assage of thin barium is visualized. There is progressive pooling of ingested contrast up to the mid chest level after only 3 consecutive swallows and recurrent episodes of esophageal reflux due to the relative obstruction.
--- NOTE | 2020-01-31 16:59 | P.PN ---
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 Of note the patient was hospitalized here from 01/18 through 01/22 with the same complaints (she had been transferred here from [place] as they had no bed availability) at that point in time she underwent an EGD was found to have an anastomotic ulcer with stricture and underwent balloon dilation. On arrival to the ER this time she was found to have a hemoglobin of 10.6 and a low potassium of 3.1. Due to her pain and she was subsequently admitted for further monitoring. She had a KUB which showed normal PATTERN. She was seen by GI. EGD was attempted on stricture process and consult surgery. Surgery recommended transfer to [facility] as she had had interactions with GI at that facility. Case was discussed with GI at [place] who recommended proceeding with an upper GI to see if she was having any passage of the barium, clear liquid diet, and PPI. If completely obstructed then can transfer to [place] for GI/ surgery evaluation. Upper GI showed high grade narrowing at the gastrojejunal anastomosis. Patient examined at bedside. She is complaining of abdominal pain. In time and wants something to eat. We discussed that she may have a high-grade obstruction at the gastrojejunal junction and that we are proceeding with an upper GI today. Patient does not want to be transferred to [facility]. Objective - Vital Signs Vital signs: Vital Signs Temp 97.7 F 01/31/20 15:00 Pulse 74 01/31/20 15:00 Resp 17 01/31/20 15:00 BP 103/71 01/31/20 15:00 Pulse Ox 100 01/31/20 15:00 Intake & Output 01/30/20 01/31/20 01/31/20 18:59 06:59 18:59 Intake Total 930 20 Balance 930 20 Intake: IV 300 Intake, IV Titration 600 Amount IV Fluid Continuation 1, 500 000 ml @ 0 mls/hr IV .Lumenergi -MED ONE Rx#:[id number] Potassium Chloride 20 meq 100 In Water For Injection 1 100ml.bag @ 50 mls/hr IVPB ONCE ONE Rx#: [id number] Oral 30 20 Other: Voiding Method Toilet Toilet # Voids 3 - Exam General: non toxic, no distress, appears at stated age Derm: warm, dry Head: atraumatic, normocephalic, symmetric Eyes: EOMI, no lid lag, anicteric sclera Mouth: no lip lesion, mucus membranes dry Cardiovascular: S1S2 reg, no murmur, positive posterior tibial pulse bilateral, Lungs: CTA bilateral, no rhonchi, no rales , no accessory muscle use Abdominal: soft, +tender to palpation diffusely, no guarding, no appreciable organomegaly Ext: no gross muscle atrophy, no edema, no contractures Neuro: CN II-XI grossly intact, no focal neuro deficits Psych: Alert, oriented, appropriate affect - Labs CBC & Chem 7: 01/31/20 07:07 01/31/20 07:07 Labs: Abnormal Lab Results - Last 24 Hours (Table) 01/31/20 01/31/20 Range/Units 07:07 07:07 WBC 2.9 L (3.8-10.6) k/uL RBC 3.76 L (3.80-5.40) m/uL Hgb 9.3 L (11.4-16.0) gm/dL Hct 30.8 L (34.0-46.0) % MCH 24.8 L (25.0-35.0) pg MCHC 30.3 L (31.0-37.0) g/dL RDW 18.0 H (11.5-15.5) % Sodium 134 L (137-145) mmol/L BUN <2 L (7-17) mg/dL Creatinine 0.47 L (0.52-1.04) mg/dL Calcium 8.1 L (8.4-10.2) mg/dL Total Protein 5.2 L (6.3-8.2) g/dL Albumin 2.6 L (3.5-5.0) g/dL Microbiology - Last 24 Hours (Table) 01/28/20 18:50 Urine Culture - Final Urine,Voided Escherichia coli Proteus mirabilis Assessment and Plan Assessment: Intractable abdominal pain and nausea secondary to anastomotic ulcer and stricture -Upper GI with high-grade narrowing that gastrojejunal anastomosis -PPI -Trial steroids for N/V and to see there is some improvement in swelling. -Surgery and GI recommendations appreciated. Await repeat Eval patient does not want transfer - NPO exept ice chips and popsicles. - Pain meds - Antiemetics - carafate COVID 19 URI - droplet and contact - supportive care. Gastroenteritis due to COVID -19 - supportive care Chronic normocytic anemia -At baseline -Monitor CBC Hypokalemia, resolved DVT prophylaxis: SCDs Discussed with: patient, nursing, Dr. Salmeron, Dr.. Garcia, [facility] Anticipated discharge: 3-[address]: home vs transfer A total of 90 minutes was spent on the care of this complex patient more than 50% of the time was spent in counseling and care coordination.
[2020-01-31] MEDS: DEXAMETHASONE SOD PHOSPHATE 4 MG/ML 1 ML VIAL IV SCH (17:24)
[2020-02-01] MEDS: DEXAMETHASONE SOD PHOSPHATE 4 MG/ML 1 ML VIAL IV SCH ×2 (02:55→10:52)
[2020-02-01] MEDS: DEXTROSE 5% IN WATER 1,000 ML with POTASSIUM CHLORIDE 40 MEQ IV SCH ×2 (02:57→19:35)
[2020-02-01] MEDS: HYDROmorphone 1 MG/ML 1 ML SYRINGE IVP PRN ×5 (03:01→21:59)
[2020-02-01] MEDS: ONDANSETRON 4 MG/2 ML VIAL IVP PRN (03:01)
[2020-02-01] MEDS: PANTOPRAZOLE 40 MG/10 ML VIAL IVP SCH ×2 (07:47→19:35)
[2020-02-01] MEDS: NICOTINE 21MG/24HR PATCH TRANSDERM SCH (07:49)
[2020-02-01 08:02] LABS: Anisocytosis Slight; HCT 34.8 % (34.0-46.0); HGB 10.1 gm/dL (11.4-16.0); Hypochromasia Marked; MCH 23.9 pg (25.0-35.0); MCHC 29.2 g/dL (31.0-37.0); MCV 81.8 fL (80.0-100.0); Mean Platelet Volume 8.1; Platelet Count 273 k/uL (150-450); RBC 4.25 m/uL (3.80-5.40); WBC 2.6 k/uL (3.8-10.6)
[2020-02-01 08:18] LABS: ALT 10 U/L (4-34); AST 23 U/L (14-36); African American GFR (CKD) >90 (>60 ml/min/1.73 sqM); Albumin 3.3 g/dL (3.5-5.0); Alkaline Phosphatase 76 U/L (38-126); Anion Gap 9 mmol/L; Blood Urea Nitrogen 2 mg/dL (7-17); Calcium 9.1 mg/dL (8.4-10.2); Carbon Dioxide 25 mmol/L (22-30); Chloride 101 mmol/L (98-107); Glucose 160 mg/dL (74-99); Non-African American GFR(CKD) >90 (>60 ml/min/1.73 sqM); Potassium 4.3 mmol/L (3.5-5.1); Sodium 135 mmol/L (137-145); Total Bilirubin 0.4 mg/dL (0.2-1.3); Total Protein 6.2 g/dL (6.3-8.2)
--- NOTE | 2020-02-01 09:01 | P.PN ---
Subjective Progress Note Date: 01/31/20 Principal diagnosis: Abdominal pain, anastomotic stricture and ulcer, nausea and vomiting Patient has not seen today, still awaiting results of small bowel follow- through. Plan to follow up tomorrow after imaging has been performed. Objective - Vital Signs Vital signs: Vital Signs Temp 97.9 F 01/31/20 07:26 Pulse 68 01/31/20 07:26 Resp 18 01/31/20 07:26 BP 115/71 01/31/20 07:26 Pulse Ox 97 01/31/20 07:26 Intake & Output 01/30/20 01/31/20 01/31/20 18:59 06:59 18:59 Intake Total 930 20 Balance 930 20 Intake: IV 300 Intake, IV Titration 600 Amount IV Fluid Continuation 1, 500 000 ml @ 0 mls/hr IV .STK -MED ONE Rx#:[id number] Potassium Chloride 20 meq 100 In Water For Injection 1 100ml.bag @ 50 mls/hr IVPB ONCE ONE Rx#: [id number] Oral 30 20 Other: Voiding Method Toilet Toilet # Voids 3 - Exam Defer physical exam to primary team. - Labs CBC & Chem 7: 02/01/20 07:39 02/01/20 07:39 Labs: Abnormal Lab Results - Last 24 Hours (Table) 01/30/20 01/31/20 01/31/20 Range/Units 14:10 07:07 07:07 WBC 2.9 L (3.8-10.6) k/uL RBC 3.76 L (3.80-5.40) m/uL Hgb 9.3 L (11.4-16.0) gm/dL Hct 30.8 L (34.0-46.0) % MCH 24.8 L (25.0-35.0) pg MCHC 30.3 L (31.0-37.0) g/dL RDW 18.0 H (11.5-15.5) % Sodium 134 L (137-145) mmol/L BUN <2 L (7-17) mg/dL Creatinine 0.47 L (0.52-1.04) mg/dL Calcium 8.1 L (8.4-10.2) mg/dL Total Protein 5.2 L (6.3-8.2) g/dL Albumin 2.6 L (3.5-5.0) g/dL Coronavirus (PCR) Detected A (Not Detectd) Assessment and Plan (1) Ulcer at site of surgical anastomosis following bypass of stomach Narrative/Plan: 44-year-old female with a past medical history significant for a Susana-en-Y alan monse bypass performed in [place] in 2007 who is a known history of a anastomotic site ulcer diagnosed last year who is been seen on multiple occasions for symptoms of abdominal pain, nausea and vomiting. On her last hospitalization EGD was significant for an anastomotic site ulcer with associated stenosis which was dilated with a [id number] balloon dilator sequentially up to 12 mm. She returns back to the hospital with similar complaints of nausea, vomiting and abdominal pain. Repeat EGD on 01/30/2020 was significant for redemonstration of the anastomotic site stenosis with the stricture progressing based on review of the prior endoscopy record with a tight 2 mm orifice noted. Current Visit: Yes Status: Acute Code(s): K28.9 - GASTROJEJUNAL ULCER, UNSP ACUTE OR CHR, W/O HEMOR OR PERF SNOMED Code(s): 336053730 (2) Nausea and vomiting Current Visit: Yes Status: Acute Code(s): R11.2 - NAUSEA WITH VOMITING, UNSPECIFIED SNOMED Code(s): 17030157 (3) Intractable abdominal pain Current Visit: Yes Status: Acute Code(s): R10.9 - UNSPECIFIED ABDOMINAL PAIN SNOMED Code(s): 84214397 Plan: Supportive care Nothing by mouth except for sips of water and popsicles Continue PPI therapy Surgical service following Small bowel follow-through pending Patient will likely need referral to tertiary center for possible endoscopic intervention with an advanced endoscopist versus surgical intervention Thank you for allowing us to participate in the care of the patient we will continue to follow
[2020-02-01] MEDS: SUCRALFATE 1 GM TAB PO SCH ×4 (10:54→19:38)
--- NOTE | 2020-02-01 16:36 | P.PN ---
Subjective Progress Note Date: 02/01/20 Principal diagnosis: Abdominal pain, anastomotic stricture and ulcer, nausea and vomiting Patient called and interview/follow-up performed over the telephone. The patient consented to the telephone call and patient identifiers were used to identify the patient. Telephone call was from 4:18 PM to 4:31 PM, 30 minutes in duration. Patient reports she is tolerating some ice chips very slowly with no nausea or vomiting. Patient is concerned that her son also has the Aguilar virus and would like to get home to attend him. Objective - Vital Signs Vital signs: Vital Signs Temp 97.5 F L 02/01/20 07:00 Pulse 73 02/01/20 07:00 Resp 16 02/01/20 07:00 BP 117/72 02/01/20 07:00 Pulse Ox 98 02/01/20 07:00 Intake & Output 01/31/20 02/01/20 02/01/20 18:59 06:59 18:59 Intake Total 80 Balance 80 Intake: Oral 80 Other: Voiding Method Toilet # Voids 2 1 - Exam Defer physical exam to primary team. - Labs CBC & Chem 7: 02/01/20 07:39 02/01/20 07:39 Labs: Abnormal Lab Results - Last 24 Hours (Table) 02/01/20 02/01/20 Range/Units 07:39 07:39 WBC 2.6 L (3.8-10.6) k/uL Hgb 10.1 L (11.4-16.0) gm/dL MCH 23.9 L (25.0-35.0) pg MCHC 29.2 L (31.0-37.0) g/dL RDW 18.0 H (11.5-15.5) % Sodium 135 L (137-145) mmol/L BUN 2 L (7-17) mg/dL Creatinine 0.50 L (0.52-1.04) mg/dL Glucose 160 H (74-99) mg/dL Total Protein 6.2 L (6.3-8.2) g/dL Albumin 3.3 L (3.5-5.0) g/dL Microbiology - Last 24 Hours (Table) 01/28/20 18:50 Urine Culture - Final Urine,Voided Escherichia coli Proteus mirabilis Assessment and Plan (1) Ulcer at site of surgical anastomosis following bypass of stomach Narrative/Plan: 44-year-old female with a past medical history significant for a Susana-en-Y gastric bypass performed in [place] in 2007 who is a known history of a anastomotic site ulcer diagnosed last year who is been seen on multiple occasions for symptoms of abdominal pain, nausea and vomiting. On her last hospitalization EGD was significant for an anastomotic site ulcer with associated stenosis which was dilated with a cfcxsrh-niy-oihxr balloon dilator sequentially up to 12 mm. She returns back to the hospital with similar complaints of nausea, vomiting and abdominal pain. Repeat EGD on 01/30/2020 was significant for redemonstration of the anastomotic site stenosis with the stricture progressing based on review of the prior endoscopy record with a tight 2 mm orifice noted. Current Visit: Yes Status: Acute Code(s): K28.9 - GASTROJEJUNAL ULCER, UNSP ACUTE OR CHR, W/O HEMOR OR PERF SNOMED Code(s): 989951720 (2) Nausea and vomiting Current Visit: Yes Status: Acute Code(s): R11.2 - NAUSEA WITH VOMITING, UNSPECIFIED SNOMED Code(s): 15002246 (3) Intractable abdominal pain Current Visit: Yes Status: Acute Code(s): R10.9 - UNSPECIFIED ABDOMINAL PAIN SNOMED Code(s): 78158666 Plan: Supportive care Nothing by mouth except for sips of water and popsicles Continue PPI therapy Surgical service following Small bowel follow-through showing severe stenosis at the anastomotic site with pooling of liquid in the gastric pouch and only a small amount of liquid passing through slowly Case discussed with the primary team and plan is for TPN and discharged with the patient following up with advanced endoscopy and bariatric surgery after she has cleared the Aguilar virus Thank you for allowing us to participate in the care of the patient we will continue to follow
--- NOTE | 2020-02-01 17:43 | P.PN ---
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 Of note the patient was hospitalized here from 01/18 through 01/22 with the same complaints (she had been transferred here from [place] as they had no bed availability) at that point in time she underwent an EGD was found to have an anastomotic ulcer with stricture and underwent balloon dilation. On arrival to the ER this time she was found to have a hemoglobin of 10.6 and a low potassium of 3.1. Due to her pain and she was subsequently admitted for further monitoring. She had a KUB which showed normal PATTERN. She was seen by GI. EGD was attempted on stricture process and consult surgery. Surgery recommended transfer to [facility] as she had had interactions with GI at that facility. Case was discussed with GI at [place] who recommended proceeding with an upper GI to see if she was having any passage of the barium, clear liquid diet, and PPI. If completely obstructed then can transfer to [place] for GI/ surgery evaluation. Upper GI showed high grade narrowing at the gastrojejunal anastomosis. Unfortunately with being COVID + [place] is unable to do a procedure at this time. We will plan on placing a PICC line for TPN if able to obtain insurance auth and GI out of [place] will have a telehealth visit in 2 weeks if she is COVID negative she can then have procedure done. Patient examined at bedside. She wants treatment done. Report tolerating ice chips. She also reports continued abdominal pain. No chest pain or shortness of breath. Objective - Vital Signs Vital signs: Vital Signs Temp 98 F 02/01/20 15:00 Pulse 85 02/01/20 15:00 Resp 18 02/01/20 15:00 BP 118/76 02/01/20 15:00 Pulse Ox 98 02/01/20 15:00 Intake & Output 01/31/20 02/01/20 02/01/20 18:59 06:59 18:59 Intake Total 80 Balance 80 Intake: Oral 80 Other: Voiding Method Toilet # Voids 2 1 1 - Exam General: non toxic, no distress, appears at stated age Derm: warm, dry Head: atraumatic, normocephalic, symmetric Eyes: EOMI, no lid lag, anicteric sclera Mouth: no lip lesion, mucus membranes dry Cardiovascular: S1S2 reg, no murmur, positive posterior tibial pulse bilateral, Lungs: Decrease bs bilateral, no rhonchi, no rales , no accessory muscle use Abdominal: soft, +tender to palpation diffusely, no guarding, no appreciable organomegaly Ext: no gross muscle atrophy, no edema, no contractures Neuro: CN II-XI grossly intact, no focal neuro deficits Psych: Alert, oriented, appropriate affect - Labs CBC & Chem 7: 02/01/20 07:39 02/01/20 07:39 Labs: Abnormal Lab Results - Last 24 Hours (Table) 02/01/20 02/01/20 Range/Units 07:39 07:39 WBC 2.6 L (3.8-10.6) k/uL Hgb 10.1 L (11.4-16.0) gm/dL MCH 23.9 L (25.0-35.0) pg MCHC 29.2 L (31.0-37.0) g/dL RDW 18.0 H (11.5-15.5) % Sodium 135 L (137-145) mmol/L BUN 2 L (7-17) mg/dL Creatinine 0.50 L (0.52-1.04) mg/dL Glucose 160 H (74-99) mg/dL Total Protein 6.2 L (6.3-8.2) g/dL Albumin 3.3 L (3.5-5.0) g/dL Microbiology - Last 24 Hours (Table) 01/28/20 18:50 Urine Culture - Final Urine,Voided Escherichia coli Proteus mirabilis Assessment and Plan Assessment: Intractable abdominal pain and nausea secondary to anastomotic ulcer and stricture - Upper GI with high-grade narrowing that gastrojejunal anastomosis - PPI - Surgery and GI recommendations appreciated. - NPO exept ice chips and popsicles. - Pain meds - Antiemetics - carafate Upper GI showed high grade narrowing at the gastrojejunal anastomosis. Unfortunately with being COVID + [place] is unable to do a procedure at this time. We will plan on placing a PICC line for TPN if able to obtain insurance auth and GI out of [place] will have a telehealth visit in 2 weeks if she is COVID negative she can then have procedure done. ( I called [facility] and [facility] both of which are unable to accomidate patient at this point in time). Case Discussed with Dr. Blanc at [facility]. COVID 19 + - droplet and contact - supportive care. Gastroenteritis due to COVID -19 - supportive care Chronic normocytic anemia -At baseline -Monitor CBC Hypokalemia, resolved DVT prophylaxis: SCDs Discussed with: patient, nursing, Dr. Salmeron, Dr. Garcia, [facility] GI Anticipated discharge: 3-[address]: home with home health A total of 75 minutes was spent on the care of this complex patient more than 5 0% of the time was spent in counseling and care coordination.
[2020-02-02] MEDS: HYDROmorphone 1 MG/ML 1 ML SYRINGE IVP PRN ×5 (02:34→19:39)
[2020-02-02 07:22] LABS: Anisocytosis Slight; HGB 9.7 gm/dL (11.4-16.0); Hypochromasia Marked; MCH 24.7 pg (25.0-35.0); MCHC 31.2 g/dL (31.0-37.0); Microcytosis Slight; Platelet Count 258 k/uL (150-450); RBC 3.92 m/uL (3.80-5.40); RDW 18.1 % (11.5-15.5); WBC 5.5 k/uL (3.8-10.6)
[2020-02-02] MEDS: NICOTINE 21MG/24HR PATCH TRANSDERM SCH (07:22)
[2020-02-02] MEDS: PANTOPRAZOLE 40 MG/10 ML VIAL IVP SCH ×2 (07:22→19:40)
[2020-02-02] MEDS: SUCRALFATE 1 GM TAB PO SCH ×4 (07:23→21:20)
[2020-02-02 07:32] LABS: ALT 9 U/L (4-34); AST 23 U/L (14-36); African American GFR (CKD) >90 (>60 ml/min/1.73 sqM); Albumin 2.9 g/dL (3.5-5.0); Alkaline Phosphatase 67 U/L (38-126); Anion Gap 5 mmol/L; Blood Urea Nitrogen 3 mg/dL (7-17); Carbon Dioxide 27 mmol/L (22-30); Chloride 103 mmol/L (98-107); Glucose 79 mg/dL (74-99); Magnesium 1.9 mg/dL (1.6-2.3); Non-African American GFR(CKD) >90 (>60 ml/min/1.73 sqM); Phosphorus 4.1 mg/dL (2.5-4.5); Potassium 3.7 mmol/L (3.5-5.1); Sodium 135 mmol/L (137-145); Total Bilirubin 0.3 mg/dL (0.2-1.3); Total Protein 5.6 g/dL (6.3-8.2)
[2020-02-02 13:10] VITALS: BMI 24.0
[2020-02-02] MEDS ORDERED: MVI, ADULT NO.4 WITH VIT K 10 ML, TRACE (CONC-1ML/DOSE) 1 ML in AMINO ACID 4.25%-D10W+L... IV ONE ×3 (14:00)
[2020-02-02 15:20] LABS: Ionized Calcium 4.9 mg/dL (4.5-5.3)
[2020-02-02] MEDS: DEXTROSE 5% IN WATER 1,000 ML with POTASSIUM CHLORIDE 40 MEQ IV SCH (15:51)
--- NOTE | 2020-02-02 16:44 | PN ---
PROGRESS NOTE DATE OF SERVICE: 02/02/2020 Patient is a 44-year-old pleasant white female admitted to the hospital with recurrent nausea, vomiting, and abdominal pain. She underwent an upper endoscopy by Dr. San 2 days ago and was noted to have tight stricture of the Susana-en-Y anastomosis from previous gastric bypass surgery. The stricture was dilated, despite which the patient continues to remain symptomatic. She had an upper GI series done that showed tight stricture. Surgery has been consulted. Presently on TPN. In the meantime, she became COVID-19 positive. PHYSICAL EXAMINATION: Vital signs show blood pressure of 105/72, pulse rate of 70, temperature 97.9. PHYSICAL EXAMINATION: Defer to the attending physician because of active COVID-19 infection. LABS: Done from today show WBC 5.1, hemoglobin 9.7, platelets normal. Basic metabolic panel is within normal limits. IMPRESSION: 1. 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 Dr. Ornelas following the patient closely. Presently going to be started on TPN. Dr. Ornelas plans on placing a J-tube for nutrition in the near future. 2. Anastomotic ulcer, remains on Protonix 40 mg twice daily. 3. Abdominal pain, improving. RECOMMENDATIONS: 1. Continue to keep her n.p.o. 2. IV fluids. 3. Continue Protonix 40 mg twice daily. 4. Discussed with the nursing staff to notify Dr. Ornelas about further plan as patient wants to be discharged home to take care of her son who was also diagnosed with COVID-19 infection. I will defer further management plans to surgical team. Thank you for this consultation. MMODL / IJN: [id number] /
[2020-02-02] MEDS: FAT EMULSION 20% 250 ML in EMPTY BAG 1 BAG IV SCH (17:53)
--- NOTE | 2020-02-02 18:28 | P.PN ---
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 Of note the patient was hospitalized here from 01/18 through 01/22 with the same complaints (she had been transferred here from [place] as they had no bed availability) at that point in time she underwent an EGD was found to have an anastomotic ulcer with stricture and underwent balloon dilation. On arrival to the ER this time she was found to have a hemoglobin of 10.6 and a low potassium of 3.1. Due to her pain and she was subsequently admitted for further monitoring. She had a KUB which showed normal PATTERN. She was seen by GI. EGD was attempted on stricture process and consult surgery. Surgery recommended transfer to [facility] as she had had interactions with GI at that facility. Case was discussed with GI at [place] who recommended proceeding with an upper GI to see if she was having any passage of the barium, clear liquid diet, and PPI. If completely obstructed then can transfer to [place] for GI/ surgery evaluation. Upper GI showed high grade narrowing at the gastrojejunal anastomosis. Unfortunately with being COVID + [place] is unable to do a procedure at this time. We will plan on placing a PICC line for TPN then discharge home and GI out of [place] will have a telehealth visit in 2 weeks if she is COVID negative she can then have procedure done. Patient examined at bedside. Patient understands plan of care, she continues to have some abdominal pain, no nausea or vomiting. She did not tolerate a trial of a few sips of ensure clear but has been tolerating minimal amounts of ice chips and popsicles Objective - Vital Signs Vital signs: Vital Signs Temp 97.9 F 02/02/20 14:28 Pulse 70 02/02/20 14:28 Resp 15 02/02/20 14:28 BP 105/72 02/02/20 14:28 Pulse Ox 95 02/02/20 14:28 Intake & Output 02/01/20 02/02/20 02/02/20 18:59 06:59 18:59 Intake Total 650 Balance 650 Weight 63.503 kg Intake: Intake, IV Titration 600 Amount Dextrose 5% in Water 1, 600 000 ml @ 50 mls/hr IV . [id number] ARMANDO with Potassium Chloride 40 meq Rx#:[id number] Oral 50 Other: Voiding Method Toilet Toilet # Voids 1 2 1 - Exam General: non toxic, no distress, appears at stated age Derm: warm, dry Head: atraumatic, normocephalic, symmetric Eyes: EOMI, no lid lag, anicteric sclera Mouth: no lip lesion, mucus membranes dry Cardiovascular: S1S2 reg, no murmur, positive posterior tibial pulse bilateral, Lungs: Decrease bs bilateral, no rhonchi, no rales , no accessory muscle use Abdominal: soft, +tender to palpation diffusely, no guarding, no appreciable organomegaly Ext: no gross muscle atrophy, no edema, no contractures Psych: Alert, oriented, appropriate affect - Labs CBC & Chem 7: 02/02/20 06:31 02/02/20 06:31 Labs: Abnormal Lab Results - Last 24 Hours (Table) 02/02/20 02/02/20 Range/Units 06:31 06:31 Hgb 9.7 L (11.4-16.0) gm/dL Hct 31.0 L (34.0-46.0) % MCV 79.0 L (80.0-100.0) fL MCH 24.7 L (25.0-35.0) pg RDW 18.1 H (11.5-15.5) % Sodium 135 L (137-145) mmol/L BUN 3 L (7-17) mg/dL Total Protein 5.6 L (6.3-8.2) g/dL Albumin 2.9 L (3.5-5.0) g/dL Assessment and Plan Assessment: Intractable abdominal pain and nausea secondary to anastomotic ulcer and stricture - Upper GI with high-grade narrowing that gastrojejunal anastomosis -Plan is for discharge home with TPN approximately 1-2 weeks. She will then have a telehealth visit with [facility] gastroenterology to plan for EGD with dilation of the anastomotic stricture, and she will follow-up with bariatric surgery out of [place] if more definitive treatment is needed. There are no plans for Dr. Ornelas to place a J-tube at this time. - PPI. Plan is for continue PPI on discharge. Likely can be accomplished with Omeprazole solution 40 mg BID - NPO exept ice chips and popsicles. - Pain meds. Likely could have a short course of hydrocodone/acetominophen liquid. - Antiemetics 02/01/2020 update: Upper GI showed high grade narrowing at the gastrojejunal anastomosis. Unfortunately with being COVID + [place] is unable to do a procedure at this time. We will plan on placing a PICC line for TPN if able to obtain insurance auth and GI out of [place] will have a telehealth visit in 2 weeks if she is COVID negative she can then have procedure done. ( I called [facility] and [facility] both of which are unable to accomidate patient at this point in time). Case Discussed with Dr. Blanc at [facility]. COVID 19 + - droplet and contact - supportive care. Gastroenteritis due to COVID -19 - supportive care Chronic normocytic anemia -At baseline -Monitor CBC Hypokalemia, resolved DVT prophylaxis: SCDs Discussed with: patient, nursing, Anticipated discharge: in AM Anticipated discharge place: home with home health A total of 35 minutes was spent on the care of this complex patient more than 50% of the time was spent in counseling and care coordination.
[2020-02-02] MEDS: ONDANSETRON 4 MG/2 ML VIAL IVP PRN (19:40)
[2020-02-03] MEDS: HYDROmorphone 1 MG/ML 1 ML SYRINGE IVP PRN ×6 (00:16→21:16)
[2020-02-03] MEDS: ONDANSETRON 4 MG/2 ML VIAL IVP PRN ×2 (05:49→14:40)
[2020-02-03] MEDS ORDERED: 1: MVI, ADULT NO.4 WITH VIT K 10 ML, TRACE (CONC-1ML/DOSE) 1 ML in AMINO ACID 4.25%-D10W IV SCH ×3 (07:00)
[2020-02-03 07:36] LABS: African American GFR (CKD) >90 (>60 ml/min/1.73 sqM); Anion Gap 5 mmol/L; Blood Urea Nitrogen 7 mg/dL (7-17); Calcium 8.1 mg/dL (8.4-10.2); Carbon Dioxide 29 mmol/L (22-30); Chloride 100 mmol/L (98-107); Glucose 95 mg/dL (74-99); Non-African American GFR(CKD) >90 (>60 ml/min/1.73 sqM); Phosphorus 5.2 mg/dL (2.5-4.5); Potassium 3.4 mmol/L (3.5-5.1); Sodium 134 mmol/L (137-145)
[2020-02-03] MEDS: SUCRALFATE 1 GM TAB PO SCH ×4 (07:36→21:24)
[2020-02-03] MEDS: PANTOPRAZOLE 40 MG/10 ML VIAL IVP SCH ×2 (08:38→21:15)
[2020-02-03] MEDS: NICOTINE 21MG/24HR PATCH TRANSDERM SCH (08:38)
[2020-02-03] MEDS ORDERED: POTASSIUM CHLORIDE 10 MEQ in WATER FOR INJECTION 1 100ML.BAG IVPB SCH (11:00)
[2020-02-03] MEDS ORDERED: LACTATED RINGERS 1,000 ML IV ONE (11:17)
[2020-02-03] MEDS ORDERED: POTASSIUM CHLORIDE ER 20 MEQ TAB.ER PO STA (11:35)
[2020-02-03] MEDS ORDERED: POTASSIUM CHLORIDE ER 20 MEQ TAB.ER PO ONE (11:37)
[2020-02-03] MEDS: DEXTROSE 5% IN WATER 1,000 ML with POTASSIUM CHLORIDE 40 MEQ IV SCH (15:16)
--- NOTE | 2020-02-03 16:09 | P.PN ---
Subjective Progress Note Date: 02/03/20 44-year-old female with a history of gastric bypass, admitted to the hospital complaining of abdominal pain, nausea vomiting diarrhea, found to have an anastomotic ulcer with stricture. The recommendation from surgery was transferred to [facility], but given her Covid positive status, this will be delayed until further notice. Patient is scheduled to have a PICC line placed this afternoon for TPN administration and to be discharged home. Today she reports worsening abdominal pain, lethargy, and has been hypotensive with systolic blood pressure in the 80s, denies any fevers or chills, no nausea or vomiting, no diarrhea, no cough or shortness of breath Objective - Vital Signs Vital signs: Vital Signs Temp 98.0 F 02/03/20 14:43 Pulse 76 02/03/20 14:43 Resp 16 02/03/20 14:43 BP 98/67 02/03/20 14:43 Pulse Ox 98 02/03/20 14:43 Intake & Output 02/02/20 02/03/20 02/03/20 18:59 06:59 18:59 Weight 63.503 kg Other: Voiding Method Toilet Toilet # Voids 1 2 - Exam General: In no acute distress, awake alert and oriented to person, time and place Head: atraumatic, normocephalic Eyes: EOMI, anicteric sclera Mouth: no lip lesion, mucus membranes dry Cardiovascular: S1S2 reg, no murmur, positive posterior tibial pulse bilateral, Lungs: Decreased breath sounds in the bases, no rhonchi, no rales , no accessory muscle use Abdominal: soft, +tender to palpation diffusely, no guarding, no appreciable organomegaly Ext: no gross muscle atrophy, no edema Psych: Alert, oriented, appropriate affect - Labs CBC & Chem 7: 02/02/20 06:31 02/03/20 06:21 Labs: Abnormal Lab Results - Last 24 Hours (Table) 02/03/20 Range/Units 06:21 Sodium 134 L (137-145) mmol/L Potassium 3.4 L (3.5-5.1) mmol/L Creatinine 0.49 L (0.52-1.04) mg/dL Calcium 8.1 L (8.4-10.2) mg/dL Phosphorus 5.2 H (2.5-4.5) mg/dL Assessment and Plan Assessment: # Anastomotic ulcer and gastrojejunal stricture -Initial plan was to transfer to [facility] for surgical intervention, given her Covid positive status, this will be delayed until further notice -Plan for PICC line placement today to resume TPN -Telehealth follow up visit with [facility] gastroenterology to plan for EGD with dilation -Follow-up with bariatric surgery at [facility] -Nothing by mouth except for ice chips -Continue antiemetics -Continue PPI # Hypokalemia -Potassium replaced # Covid 19 positive -No signs of pneumonia or severe infection -Continue droplet and contact precautions -Supportive care # Chronic normocytic anemia -Secondary to chronic disease -Hemoglobin baseline DVT prophylaxis: SCDs Discussed with: patient, nursing Anticipated discharge: in AM Anticipated discharge place: home with home health
--- NOTE | 2020-02-03 17:25 | PN ---
PROGRESS NOTE DATE OF SERVICE: 02/03/2020 Patient is a 44-year-old pleasant white female admitted to the hospital 5 days ago with severe nausea, vomiting. She underwent an EGD by Dr. San and was noted to have anastomotic stricture of the Susana-en-Y anastomosis from the bypass surgery for which she underwent dilation. She continued to remain symptomatic with nausea, vomiting. Upper GI series showed significant obstruction because of the anastomotic stricture. She remains n.p.o. right now except for ice chips. A TPN was started 2 days ago. She is being considered for discharge with followup with GI physicians at [facility]. In the meantime, she is COVID positive and being watched closely. She denies any fever, chills, or shortness of breath. PHYSICAL EXAMINATION: Vital signs show blood pressure of a 98/67, pulse is 76, temperature 98. Physical examination deferred to the attending physician. LABS: From today, sodium 134, potassium 3.4, BUN and creatinine are 7 and 0.4 respectively and still the labs are within normal limits. IMPRESSION: 1. 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 Upper GI series showed significant obstruction at the site of the stricture where she also had an modular ulcer, remains on TPN. 2. Positive for COVID-19 positive with no respiratory symptoms. 3. abnormalities. RECOMMENDATION: 1. Continue with TPN. 2. Discussed with Dr. Ornelas and she recommended further management at a tertiary institute by her prior GI physicians and bariatric surgeon at [facility]. 3. Continue Protonix 40 mg twice daily. 4. Will follow with you closely. Thank you for this consultation. MMODL / IJN: [id number] /
[2020-02-03] MEDS: 1: MVI, ADULT NO.4 WITH VIT K 10 ML, TRACE (CONC-1ML/DOSE) 1 ML, PARENTERAL ELECTROLYTES IV SCH ×4 (17:40)
[2020-02-03] MEDS: FAT EMULSION 20% 250 ML in EMPTY BAG 1 BAG IV SCH (17:41)
[2020-02-04] MEDS: HYDROmorphone 1 MG/ML 1 ML SYRINGE IVP PRN ×5 (00:54→20:18)
[2020-02-04 08:07] LABS: African American GFR (CKD) >90 (>60 ml/min/1.73 sqM); Anion Gap 6 mmol/L; Blood Urea Nitrogen 13 mg/dL (7-17); Calcium 8.2 mg/dL (8.4-10.2); Carbon Dioxide 26 mmol/L (22-30); Chloride 102 mmol/L (98-107); Glucose 77 mg/dL (74-99); Magnesium 2.2 mg/dL (1.6-2.3); Non-African American GFR(CKD) >90 (>60 ml/min/1.73 sqM); Phosphorus 4.3 mg/dL (2.5-4.5); Potassium 4.4 mmol/L (3.5-5.1); Sodium 134 mmol/L (137-145)
[2020-02-04] MEDS ORDERED: LIDOCAINE 1% INJ 10MG/ML (20 ML MDV) ONE (10:32)
[2020-02-04] MEDS ORDERED: LIDOCAINE 1% INJ 10MG/ML (20 ML MDV) SQ ONE (10:37)
[2020-02-04 11:34] LABS: Glucose,Whole Blood 134 mg/dL (75-99)
[2020-02-04] MEDS: SUCRALFATE 1 GM TAB PO SCH ×4 (11:37→23:37)
[2020-02-04] MEDS: DEXTROSE 5% IN WATER 1,000 ML with POTASSIUM CHLORIDE 40 MEQ IV SCH (13:08)
[2020-02-04] MEDS: PANTOPRAZOLE 40 MG/10 ML VIAL IVP SCH ×2 (13:08→20:19)
--- NOTE | 2020-02-04 14:20 | P.PN ---
Subjective Progress Note Date: 02/04/20 Pain has significant improved today, she denies any nausea or vomiting, no fevers or chills. There were several attempts at inserting a PICC line today and both arms with no success, this will be needed for TPN for at least the next 2-4 weeks. Another attempt will be made to insert a tunneled catheter tomorrow which will delay her discharge. Overall the patient is stable and has had no other significant events for the last 24 hours Objective - Vital Signs Vital signs: Vital Signs Temp 97.8 F 02/04/20 07:00 Pulse 89 02/04/20 11:42 Resp 16 02/04/20 11:42 BP 114/72 02/04/20 11:42 Pulse Ox 100 02/04/20 11:42 Intake & Output 02/03/20 02/04/20 02/04/20 18:59 06:59 18:59 Other: Voiding Method Toilet # Voids 2 1 1 - Exam General: In no acute distress, awake alert and oriented to person, time and place Head: atraumatic, normocephalic Eyes: EOMI, anicteric sclera Mouth: no lip lesion, mucus membranes dry Cardiovascular: S1S2 reg, no murmur Lungs: Decreased breath sounds in the bases, no rhonchi, no rales , no accessory muscle use Abdominal: soft, +tender to palpation diffusely but improving, no guarding, no appreciable organomegaly Ext: no gross muscle atrophy, no edema Psych: Alert, oriented, appropriate affect - Labs CBC & Chem 7: 02/02/20 06:31 02/04/20 07:07 Labs: Abnormal Lab Results - Last 24 Hours (Table) 02/04/20 02/04/20 Range/Units 07:07 11:32 Sodium 134 L (137-145) mmol/L Creatinine 0.51 L (0.52-1.04) mg/dL POC Glucose (mg/dL) 134 H (75-99) mg/dL Calcium 8.2 L (8.4-10.2) mg/dL Assessment and Plan Assessment: # Anastomotic ulcer and gastrojejunal stricture -Initial plan was to transfer to [facility] for surgical intervention, given her Covid positive status, this will be delayed until further notice -Multiple attempts were unsuccessful placing a PICC line for TPN -Planned for placement of tunneled catheter most likely tomorrow -Telehealth follow up visit with [facility] gastroenterology to plan for EGD with dilation -Follow-up with bariatric surgery at [facility] -Nothing by mouth except for ice chips -Continue antiemetics as needed -Continue PPI # Hypokalemia -Potassium replaced # Covid 19 positive -No signs of pneumonia or severe infection -Continue droplet and contact precautions -Supportive care # Chronic normocytic anemia -Secondary to chronic disease -Hemoglobin baseline DVT prophylaxis: SCDs Discussed with: patient, nursing Anticipated discharge: Tomorrow after tunneled catheter was placed Anticipated discharge place: home with home health
[2020-02-04] MEDS: 1: MVI, ADULT NO.4 WITH VIT K 10 ML, TRACE (CONC-1ML/DOSE) 1 ML, PARENTERAL ELECTROLYTES IV SCH ×8 (16:20→23:37)
[2020-02-04] MEDS: FAT EMULSION 20% 250 ML in EMPTY BAG 1 BAG IV SCH (18:22)
[2020-02-05] MEDS: HYDROmorphone 1 MG/ML 1 ML SYRINGE IVP PRN ×6 (00:16→22:14)
[2020-02-05] MEDS: DEXTROSE 5% IN WATER 1,000 ML with POTASSIUM CHLORIDE 40 MEQ IV SCH (08:39)
[2020-02-05] MEDS: SUCRALFATE 1 GM TAB PO SCH ×4 (08:39→19:54)
[2020-02-05] MEDS: NICOTINE 21MG/24HR PATCH TRANSDERM SCH (08:40)
[2020-02-05] MEDS: PANTOPRAZOLE 40 MG/10 ML VIAL IVP SCH ×2 (08:40→19:56)
[2020-02-05 09:00] LABS: ALT 9 U/L (4-34); AST 23 U/L (14-36); African American GFR (CKD) >90 (>60 ml/min/1.73 sqM); Albumin 2.9 g/dL (3.5-5.0); Alkaline Phosphatase 56 U/L (38-126); Anion Gap 12 mmol/L; Blood Urea Nitrogen 4 mg/dL (7-17); Calcium 8.5 mg/dL (8.4-10.2); Carbon Dioxide 21 mmol/L (22-30); Chloride 100 mmol/L (98-107); Glucose 125 mg/dL (74-99); Non-African American GFR(CKD) >90 (>60 ml/min/1.73 sqM); Phosphorus 3.7 mg/dL (2.5-4.5); Potassium 3.9 mmol/L (3.5-5.1); Sodium 133 mmol/L (137-145); Total Bilirubin 0.5 mg/dL (0.2-1.3); Total Protein 5.6 g/dL (6.3-8.2)
[2020-02-05 09:02] LABS: Anisocytosis Slight; Basophils # (A) 0.1 k/uL (0-0.2); Basophils % (A) 1 %; Eosinophils # (A) 0.1 k/uL (0-0.7); Eosinophils % (A) 2 %; HCT 35.3 % (34.0-46.0); HGB 10.1 gm/dL (11.4-16.0); Hypochromasia Marked; Lymphocytes # (A) 1.7 k/uL (1.0-4.8); Lymphocytes % (A) 31 %; MCH 24.2 pg (25.0-35.0); MCHC 28.7 g/dL (31.0-37.0); Monocytes # (A) 0.3 k/uL (0-1.0); Monocytes % (A) 5 %; Neutrophils # (A) 3.4 k/uL (1.3-7.7); Neutrophils % (A) 60 %; Platelet Count 267 k/uL (150-450); RBC 4.19 m/uL (3.80-5.40); WBC 5.6 k/uL (3.8-10.6)
[2020-02-05 09:06] LABS: MCV 84.3 fL (80.0-100.0)
[2020-02-05 09:29] LABS: Poikilocytosis (M) Present
[2020-02-05] MEDS: ONDANSETRON 4 MG/2 ML VIAL IVP PRN (12:10)
--- NOTE | 2020-02-05 12:47 | P.GSCN ---
History of Present Illness Consult date: 02/05/20 History of present illness: Patient is a 44 old female with a past medical history of a Susana-en-Y gastric bypass and continued nausea vomiting due to gastrojejunostomal stricture. She is also covert positive at this time therefore plans to transfer to [facility] to see her bariatric surgeon were halted. Multiple attempts were made at placing a PICC line for peripheral nutrition, there is seemingly unsuccessful agreement as of this time to place a central line. Discussion was had with the patient will likely need ongoing infusions therefore we will plan to place a tunneled catheter. At this time patient has abdominal pain as previous. She denies any fevers, chills, nausea or vomiting. She has a shortness of breath 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 History of Any Multi-Drug Resistant Organisms: None Reported Past Surgical History: Bariatric Surgery, Section, Cholecystectomy, Orthopedic Surgery, Tonsillectomy Additional Past Surgical History / Comment(s): susana-en-y gastric bypass in 2007, c sec x2.; right shoulder sx x2 december 2019; right bunionectomy Past Anesthesia/Blood Transfusion Reactions: No Reported Reaction Past Psychological History: Anxiety, Depression Smoking Status: Current every day smoker Past Alcohol Use History: None Reported Past Drug Use History: None Reported - Past Family History Brother(s) Family Medical History: Myocardial Infarction (MA) Mother Additional Family Medical History / Comment(s): recently passed from cardiac issues Medications and Allergies Home Medications Medication Instructions Recorded Confirmed Type Escitalopram [Lexapro] 20 mg PO DAILY 01/20/20 01/28/20 History Esomeprazole Magnesium [NexIUM] 40 mg PO BID 01/20/20 01/28/20 History Hydrocodone/Acetaminophen [[place] 1 tab PO Q6HR PRN 01/20/20 01/28/20 History 10-325] Sucralfate [Carafate] 1 gm PO ACHS 01/20/20 01/28/20 History Allergies Allergy/AdvReac Type Severity Reaction Status Date / Time ciprofloxacin [From Cipro] Allergy Rash/Hives Verified 01/28/20 19:24 Surgical - Exam Vital Signs Temp Pulse Resp BP Pulse Ox 98.5 F 77 18 105/69 99 01/28/20 14:45 01/28/20 14:45 01/28/20 14:45 01/28/20 14:45 01/28/20 14:45 Gen. a pleasant cooperative female in no acute distress. HEENT is normal cephalic, atraumatic, excellent motion intact. Heart is regular rate and rhythm. Lungs are clear bilaterally. Abdomen is soft, mild diffuse tenderness. Nondistended. Extremity show no clubbing, cyanosis or edema Results - Labs 02/05/20 07:48 02/05/20 07:48 Abnormal Lab Results - Last 24 Hours (Table) 02/05/20 02/05/20 Range/Units 07:48 07:48 Hgb 10.1 L (11.4-16.0) gm/dL MCH 24.2 L (25.0-35.0) pg MCHC 28.7 L (31.0-37.0) g/dL RDW 18.0 H (11.5-15.5) % Sodium 133 L (137-145) mmol/L Carbon Dioxide 21 L (22-30) mmol/L BUN 4 L (7-17) mg/dL Glucose 125 H (74-99) mg/dL Total Protein 5.6 L (6.3-8.2) g/dL Albumin 2.9 L (3.5-5.0) g/dL Diabetes panel 02/05/20 Range/Units 07:48 Sodium 133 L (137-145) mmol/L Potassium 3.9 (3.5-5.1) mmol/L Chloride 100 (98-107) mmol/L Carbon Dioxide 21 L (22-30) mmol/L BUN 4 L (7-17) mg/dL Creatinine 0.52 (0.52-1.04) mg/dL Glucose 125 H (74-99) mg/dL Calcium 8.5 (8.4-10.2) mg/dL AST 23 (14-36) U/L ALT 9 (4-34) U/L Alkaline Phosphatase 56 (38-126) U/L Total Protein 5.6 L (6.3-8.2) g/dL Albumin 2.9 L (3.5-5.0) g/dL Calcium panel 02/05/20 Range/Units 07:48 Calcium 8.5 (8.4-10.2) mg/dL Phosphorus 3.7 (2.5-4.5) mg/dL Albumin 2.9 L (3.5-5.0) g/dL Pituitary panel 02/05/20 Range/Units 07:48 Sodium 133 L (137-145) mmol/L Potassium 3.9 (3.5-5.1) mmol/L Chloride 100 (98-107) mmol/L Carbon Dioxide 21 L (22-30) mmol/L BUN 4 L (7-17) mg/dL Creatinine 0.52 (0.52-1.04) mg/dL Glucose 125 H (74-99) mg/dL Calcium 8.5 (8.4-10.2) mg/dL Adrenal panel 02/05/20 Range/Units 07:48 Sodium 133 L (137-145) mmol/L Potassium 3.9 (3.5-5.1) mmol/L Chloride 100 (98-107) mmol/L Carbon Dioxide 21 L (22-30) mmol/L BUN 4 L (7-17) mg/dL Creatinine 0.52 (0.52-1.04) mg/dL Glucose 125 H (74-99) mg/dL Calcium 8.5 (8.4-10.2) mg/dL Total Bilirubin 0.5 (0.2-1.3) mg/dL AST 23 (14-36) U/L ALT 9 (4-34) U/L Alkaline Phosphatase 56 (38-126) U/L Total Protein 5.6 L (6.3-8.2) g/dL Albumin 2.9 L (3.5-5.0) g/dL Assessment and Plan Assessment: Anastomotic ulcer with gastrojejunal stricture Abdominal pain Nausea COVID positive Plan: We will plan to place a tunneled Og catheter via the IJ in special proc edures today. Risks and benefits were discussed with the patient. She seemingly understands and is willing to proceed.
[2020-02-05] MEDS ORDERED: LIDOCAINE 1% INJ 10MG/ML (20 ML MDV) SQ ONE (13:09)
[2020-02-05] MEDS: MIDAZOLAM 2 MG/2 ML VIAL IV ONE ×2 (13:09→13:12)
[2020-02-05] MEDS ORDERED: SODIUM CHLORIDE 0.9% 1,000 ML IV ONE (13:13)
[2020-02-05] MEDS: fentaNYL (PF) 50 MCG/ML 2 ML AMP IV ONE ×2 (13:15→13:24)
--- NOTE | 2020-02-05 13:31 | P.OP ---
Date of Procedure: 02/05/20 Description of Procedure: Preoperative diagnosis: Gastrojejunal stricture, anastomotic ulcer, previous Susana-en-Y, nausea, inability to tolerate oral feeds, need for peripheral nutrition Postoperative diagnosis: Same Procedure: [#1 ultrasound-guided right internal jugular vein access #2 placement of tunneled Og catheter #3 15 minutes moderate conscious sedation] Surgeon: Jessie Wallace D.O. EBL: [Less than 10 mL] IV fluids: [See nursing notes] Urine output: [Not measured] Drains: [None] Complications: [None immediately apparent] Condition: [Stable to room] Operative indication and findings: [Patient is a 44-year-old female who previous Susana-en-Y gastric bypass who has inability to tolerate oral feeds along with anastomotic ulcer and stricture. She is also COVID positive. Due to this she was unable to be transferred to her primary institution and operating surgeon therefore initial attempts were made for place a PICC line for peripheral nutrition but were unsuccessful. We're asked to place a tunneled central line. Risks and benefits were discussed the patient seemingly understood and were willing to proceed.] Procedure in detail: [The patient was taken to the operative suite and placed in supine position. The right neck and chest were prepped and draped in usual sterile fashion. A preprocedure timeout performed, all parties are in agreement. Preoperative antibiotics were given. IV sedation was initiated. The ultrasound was utilized and the right internal jugular was identified. The needle was utilized access the vein with return of dark venous, nonpulsatile blood. A guidewire was placed and Seldinger technique was used to place 035 wire. The previously measured catheter was tunneled from the chest wall to the puncture site. A tear-away sheath was then placed over the wire. The catheter was advanced and the tear-away sheath was removed. Fluoroscopy was utilized to confirm positioning. The catheter aspirated and flushed freely without any issue. The catheter was sutured in place with silk. The neck incision was reprepped and with 3-0 Vicryl. Dressings were placed including a Biopatch. A post procedure chest x-ray is pending. The patient tolerated the procedure well.]
--- NOTE | 2020-02-05 13:49 | IR ---
EXAMINATION TYPE: IR cvc insert central tunneled DATE OF EXAM: 02/05/2020 CLINICAL HISTORY: Renal failure TECHNIQUE: Fluoroscopy. COMPARISON: None. FINDINGS: Fluoroscopic guidance was provided during dialysis catheter insertion procedure performed by Dr. Wallace. A total of 6 seconds of fluoroscopic time was utilized during the procedure and 0 spot images are saved to PACS. IMPRESSION: As Above.
--- NOTE | 2020-02-05 15:14 | XR ---
EXAMINATION TYPE: XR chest 1V portable DATE OF EXAM: 02/05/2020 CLINICAL HISTORY: Og catheter placement. TECHNIQUE: Single AP portable upright view of the chest is obtained. COMPARISON: None. FINDINGS: Right internal jugular catheter terminates in SVC. Lungs are grossly clear. Cardiac silhou ette size appears within normal limits. Slight scoliotic curvature visualized spine. High dense mater ial left upper gastric region presumed within splenic flexure from recent upper GI procedure. IMPRESSION: Right internal jugular central catheter terminates in SVC. No pneumothorax.
--- NOTE | 2020-02-05 16:00 | P.PN ---
Subjective Progress Note Date: 02/05/20 Patient's discharge was delayed an additional day yesterday after multiple attempts of placing a PICC line failed. She had a tunneled catheter placed this afternoon, however she had received Versed and fentanyl, she is so lethargic several hours later and does not have a ride home which will delay her discharge and additional day. Otherwise her pain is well-controlled, she complains of occasional nausea, no fevers or chills, no shortness of breath, no cough or chest pain. Overall no other significant events have occurred in the last 24 hours Objective - Vital Signs Vital signs: Vital Signs Temp 98.3 F 02/05/20 11:00 Pulse 103 H 02/05/20 11:00 Resp 17 02/05/20 11:00 BP 113/80 02/05/20 11:00 Pulse Ox 99 02/05/20 11:00 Intake & Output 02/04/20 02/05/20 02/05/20 18:59 06:59 18:59 Intake Total 200 150 Balance 200 150 Weight 63.503 kg Intake: IV 150 Intake, IV Titration 200 Amount Dextrose 5% in Water 1, 200 000 ml @ 50 mls/hr IV . [id number] ARMANDO with Potassium Chloride 40 meq Rx#:[id number] Other: Voiding Method Toilet # Voids 1 1 - Exam General: In no acute distress, awake alert and oriented to person, time and place Head: atraumatic, normocephalic Eyes: EOMI, anicteric sclera Mouth: no lip lesion, mucus membranes dry Cardiovascular: S1S2 reg, no murmur Lungs: Decreased breath sounds in the bases, no rhonchi, no rales , no accessory muscle use Abdominal: soft, +tender to palpation diffusely but improving, no guarding, no appreciable organomegaly Ext: no gross muscle atrophy, no edema Psych: Alert, oriented, appropriate affect - Labs CBC & Chem 7: 02/05/20 07:48 02/05/20 07:48 Labs: Abnormal Lab Results - Last 24 Hours (Table) 02/05/20 02/05/20 Range/Units 07:48 07:48 Hgb 10.1 L (11.4-16.0) gm/dL MCH 24.2 L (25.0-35.0) pg MCHC 28.7 L (31.0-37.0) g/dL RDW 18.0 H (11.5-15.5) % Sodium 133 L (137-145) mmol/L Carbon Dioxide 21 L (22-30) mmol/L BUN 4 L (7-17) mg/dL Glucose 125 H (74-99) mg/dL Total Protein 5.6 L (6.3-8.2) g/dL Albumin 2.9 L (3.5-5.0) g/dL Assessment and Plan Assessment: # Anastomotic ulcer and gastrojejunal stricture -Initial plan was to transfer to [facility] for surgical intervention, given her Covid positive status, this will be delayed until further notice -tunnelled catheter placed today for TPN -Telehealth follow up visit with [facility] gastroenterology to plan for EGD with dilation -Follow-up with bariatric surgery at [facility] -Continue antiemetics as needed -Continue PPI # Hypokalemia -resolved # Covid 19 positive -No signs of pneumonia or severe infection -Continue droplet and contact precautions -Supportive care # Chronic normocytic anemia -Secondary to chronic disease -Hemoglobin at baseline DVT prophylaxis: SCDs Discussed with: patient, nursing Anticipated discharge: DC delayed due to post procedural sedation and no transport Anticipated discharge place: home with home health
[2020-02-05] MEDS: 1: MVI, ADULT NO.4 WITH VIT K 10 ML, TRACE (CONC-1ML/DOSE) 1 ML, PARENTERAL ELECTROLYTES IV SCH ×4 (16:39)
[2020-02-05] MEDS ORDERED: MVI, ADULT NO.4 WITH VIT K 10 ML, TRACE (CONC-1ML/DOSE) 1 ML in AMINO ACID 4.25%-D10W+L... IV ONE ×3 (17:00)
--- NOTE | 2020-02-05 17:27 | PN ---
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 She remains on clear liquid diet, barely tolerating it. She is undergoing central line catheter placement today because the PICC line is nonfunctional. She is complaining of some abdominal pain. She reports no nausea, vomiting. PHYSICAL EXAMINATION: Appears comfortable, vital signs show a blood pressure of 102/86, pulse rate 87, and temperature 98. Physical examination was deferred to the attending physician because of positive COVID- 19 status. IMPRESSION: 1. 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 San, not successful. Remains on a clear liquid diet, presently is receiving TPN. 2. Positive COVID-19 with no respiratory symptoms. RECOMMENDATIONS: 1. Continue with clear liquids. 2. Continue with Protonix 40 mg q.12 hours. 3. Start TPN once central line is placed. 4. Will follow with you closely. Thank you for this consultation. MMODL / IJN: [id number] /
[2020-02-05] MEDS: FAT EMULSION 20% 250 ML in EMPTY BAG 1 BAG IV SCH (18:19)
[2020-02-06] MEDS: HYDROmorphone 1 MG/ML 1 ML SYRINGE IVP PRN ×2 (02:02→06:04)
[2020-02-06] MEDS: DEXTROSE 5% IN WATER 1,000 ML with POTASSIUM CHLORIDE 40 MEQ IV SCH (02:30)
[2020-02-06 03:55] VITALS: RESP 17
[2020-02-06] MEDS: SUCRALFATE 1 GM TAB PO SCH (08:18)
[2020-02-06 08:26] VITALS: BP 101/65; PULSE 95; TEMP 97.6
[2020-02-06] MEDS: PANTOPRAZOLE 40 MG/10 ML VIAL IVP SCH (09:03)
[2020-02-06] MEDS: NICOTINE 21MG/24HR PATCH TRANSDERM SCH (09:03)
[2020-02-06 09:21] LABS: African American GFR (CKD) >90 (>60 ml/min/1.73 sqM); Anion Gap 10 mmol/L; Blood Urea Nitrogen 7 mg/dL (7-17); Calcium 8.4 mg/dL (8.4-10.2); Carbon Dioxide 23 mmol/L (22-30); Chloride 99 mmol/L (98-107); Glucose 93 mg/dL (74-99); Non-African American GFR(CKD) >90 (>60 ml/min/1.73 sqM); Phosphorus 3.9 mg/dL (2.5-4.5); Potassium 3.9 mmol/L (3.5-5.1); Sodium 132 mmol/L (137-145)
--- NOTE | 2020-02-06 09:24 | P.PN ---
Subjective Progress Note Date: 02/06/20 Patient seen and examined. Overall feeling better. In better spirits today. No chest pains or shortness of breath. Objective - Vital Signs Vital signs: Vital Signs Temp 97.6 F 02/06/20 07:00 Pulse 95 02/06/20 07:00 Resp 17 02/06/20 07:00 BP 101/65 02/06/20 07:00 Pulse Ox 95 02/06/20 07:00 Intake & Output 02/05/20 02/06/20 02/06/20 18:59 06:59 18:59 Intake Total 550 100 Balance 550 100 Weight 63.503 kg Intake: IV 150 Intake, IV Titration 400 Amount Dextrose 5% in Water 1, 400 000 ml @ 50 mls/hr IV . [id number] ARMANDO with Potassium Chloride 40 meq Rx#:[id number] Oral 100 Other: Voiding Method Toilet # Voids 1 - Exam Gen. is a pleasant and cooperative female in no acute distress. HEENT is normocephalic, atraumatic, extraocular motion intact. Heart is regular. Lungs are clear bilaterally. There is a right chest wall tunneled catheter which is clean and dry. It is functioning well. Abdomen is soft, decreased tenderness to palpation. Extremities no clubbing, cyanosis or edema. Normal mood and affect. Cranial nerves II through XII grossly intact - Labs CBC & Chem 7: 02/05/20 07:48 02/05/20 07:48 Labs: Abnormal Lab Results - Last 24 Hours (Table) 02/05/20 Range/Units 07:48 Hgb 10.1 L (11.4-16.0) gm/dL MCH 24.2 L (25.0-35.0) pg MCHC 28.7 L (31.0-37.0) g/dL RDW 18.0 H (11.5-15.5) % Assessment and Plan Assessment: Anastomotic ulcer with gastrojejunal stricture Abdominal pain Nausea COVID positive Plan: X-rays reviewed. Satisfactory positioning of the catheter without evidence of pneumothorax. Functioning well. Okay for discharge from a vascular standpoint. No need for follow-up with me unless primary surgeon unwilling to remove catheter at the time it becomes necessary.
[2020-02-06] MEDS ORDERED: 1: MVI, ADULT NO.4 WITH VIT K 10 ML, TRACE (CONC-1ML/DOSE) 1 ML in AMINO ACID 4.25%-D10W IV SCH ×3 (10:00)
== END 2020-02-06 10:50 | disposition home health service (06) | DRG 393 ==
LOC: EC 14:25 → 5NMEDONC 19:06 → 4SSUR 01-30 16:01
PROVIDERS: ADMIT Internal Medicine; ATTEND Internal Medicine
PROC: 0DJ08ZZ Inspection of Upper Intestinal Tract, Via Natural or Artificial Opening Endoscopic (ICD-10-PCS; principal; 2020-01-30 09:00)
PROC: 3E0336Z Introduction of Nutritional Substance into Peripheral Vein, Percutaneous Approach (ICD-10-PCS; 2020-02-02)
PROC: 02HV33Z Insertion of Infusion Device into Superior Vena Cava, Percutaneous Approach (ICD-10-PCS; 2020-02-05)
PROC: 0JH63XZ Insertion of Tunneled Vascular Access Device into Chest Subcutaneous Tissue and Fascia, Percutaneous Approach (ICD-10-PCS; 2020-02-05 13:00)
DX: K95.89 Other complications of other bariatric procedure (principal); U07.1 COVID-19; A08.39 Other viral enteritis; I95.9 Hypotension, unspecified; J44.9 Chronic obstructive pulmonary disease, unspecified; K28.9 Gastrojejunal ulcer, unspecified as acute or chronic, without hemorrhage or perforation; K21.9 Gastro-esophageal reflux disease without esophagitis; F41.9 Anxiety disorder, unspecified; F32.9 Major depressive disorder, single episode, unspecified; F17.200 Nicotine dependence, unspecified, uncomplicated; E86.0 Dehydration; E87.6 Hypokalemia; R82.90 Unspecified abnormal findings in urine; D64.9 Anemia, unspecified; D72.819 Decreased white blood cell count, unspecified; G89.4 Chronic pain syndrome; R74.8 Abnormal levels of other serum enzymes; Y83.8 Other surgical procedures as the cause of abnormal reaction of the patient, or of later complication, without mention of misadventure at the time of the procedure; Z53.09 Procedure and treatment not carried out because of other contraindication; Z71.3 Dietary counseling and surveillance; Z79.899 Other long term (current) drug therapy; Z98.84 Bariatric surgery status; Z87.19 Personal history of other diseases of the digestive system; Z87.01 Personal history of pneumonia (recurrent); Z90.49 Acquired absence of other specified parts of digestive tract; Z98.890 Other specified postprocedural states; Z88.1 Allergy status to other antibiotic agents; Z82.49 Family history of ischemic heart disease and other diseases of the circulatory system
CPT/HCPCS: 36415; 36558; 43235; 71045; 74018; 74240; 76937; 77001; 80048; 80053; 81001; 81025; 82150; 82272; 82330; 83690; 83735; 84100; 84443; 84478; 85025; 85027; 87077; 87086; 87186; 87635; 96361; 96365; 96366; 96375; 96376; 99285

== ENCOUNTER 2020-02-06 21:15 | Emergency (ER) | payer OTHER ==
[2020-02-06 21:22] VITALS: RESP 18
[2020-02-06] MEDS ORDERED: MORPHINE SULFATE 4 MG/ML SYRINGE IVP STA ×2 (21:55→23:09)
[2020-02-06] MEDS ORDERED: ONDANSETRON 4 MG/2 ML VIAL IVP STA (21:55)
[2020-02-06] MEDS ORDERED: SODIUM CHLORIDE 0.9% 1,000 ML IV STA (22:08)
--- NOTE | 2020-02-06 22:11 | ED ---
General Adult HPI - General Chief complaint: Abdominal Pain Stated complaint: Vomiting Time Seen by Provider: 02/06/20 21:37 Source: patient Mode of arrival: ambulatory Limitations: no limitations - History of Present Illness Initial comments: Patient is a 44-year-old female presenting to the emergency Department with complaints of nausea, vomiting, abdominal pain since this morning. Patient was recently discharged from the hospital earlier this morning and then began having these symptoms approximately a few hours later. Patient tested positive for COVID on January 29. She also has a gastrojejunal stricture that she's had for awhile now and has d/c instructions with f/u that she was given this morning. Patient states she is unable to keep down her liquid pain medication and has been having more and more abdominal discomfort. Patient denies having fever, chills, chest pain, shortness of breath. She denies having diarrhea. She has no other complaints. Upon arrival to the ER, her vitals are stable. - Related Data Home Medications Medication Instructions Recorded Confirmed Escitalopram [Lexapro] 20 mg PO DAILY 01/20/20 01/28/20 Esomeprazole Magnesium [NexIUM] 40 mg PO BID 01/20/20 01/28/20 Sucralfate [Carafate] 1 gm PO ACHS 01/20/20 01/28/20 Previous Rx's Medication Instructions Recorded Hydrocodone/Acetaminophen 15 ml PO Q6HR PRN 7 Days #420 ml 02/06/20 [Hydrocodone-Acetamn 7.5-325/15] Ondansetron Odt [Zofran Odt] 4 mg PO Q8HR PRN #10 tab 02/07/20 Allergies Allergy/AdvReac Type Severity Reaction Status Date / Time ciprofloxacin [From Cipro] Allergy Rash/Hives Verified 02/06/20 21:22 Review of Systems ROS Statement: Those systems with pertinent positive or pertinent negative responses have been documented in the HPI. ROS Other: All systems not noted in ROS Statement are negative. 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 History of Any Multi-Drug Resistant Organisms: None Reported Past Surgical History: Bariatric Surgery, Section, Cholecystectomy, Orthopedic Surgery, Tonsillectomy Additional Past Surgical History / Comment(s): yenny-en-y gastric bypass in 2007, c sec x2.; right shoulder sx x2 december 2019; right bunionectomy Past Anesthesia/Blood Transfusion Reactions: No Reported Reaction Past Psychological History: Anxiety, Depression Smoking Status: Current every day smoker Past Alcohol Use History: None Reported Past Drug Use History: None Reported - Past Family History Brother(s) Family Medical History: Myocardial Infarction ([place]) Mother Additional Family Medical History / Comment(s): recently passed from cardiac iss ues General Exam - General Exam Comments Initial Comments: GENERAL: Well-appearing, well-nourished and in no acute distress. HEAD: Atraumatic, normocephalic. EYES: Pupils equal round and reactive to light, extraocular movements intact, sclera anicteric, conjunctiva are normal. ENT: TMs normal, nares patent, oropharynx clear without exudates. Moist mucous membranes. NECK: Normal range of motion, supple without lymphadenopathy or JVD. LUNGS: Breath sounds clear to auscultation bilaterally and equal. No wheezes rales or rhonchi. HEART: Regular rate and rhythm without murmurs, rubs or gallops. ABDOMEN: Generalized abdominal discomfort, increase in epigastric region. Soft, normoactive bowel sounds. No guarding, no rebound. No masses appreciated. : Deferred EXTREMITIES: Normal range of motion, no pitting or edema. No clubbing or cyanosis. NEUROLOGICAL: Cranial nerves II through XII grossly intact. Normal speech, normal gait. PSYCH: Normal mood, normal affect. SKIN: Warm, Dry, normal turgor, no rashes or lesions noted. Limitations: no limitations Course Vital Signs 02/06/20 02/06/20 21:18 22:21 Temperature 97.9 F 98.1 F Pulse Rate 102 H 90 Respiratory 18 18 Rate Blood Pressure 98/73 101/57 O2 Sat by Pulse 96 98 Oximetry Medical Decision Making - Medical Decision Making Patient is a 44-year-old female here for nausea, vomiting, abdominal pain since this morning. Patient was just released from this hospital this morning in for positive Covid infection along with a significant gastro stricture. Patient was discharged with liquid pain medication, a port for TPN. Lab work today revealed no significant changes from yesterday. Patient was given pain control as well as nausea medications. She has had no vomiting in the ER. She seems comfortable. I discussed with patient that we have no reason for admission at this time and I recommended her continuing with her plan for follow-up with GI. I will give patient Zofran to use as needed for nausea. Patient is in agreement with this plan of care. Return parameters were discussed with the patient she verbalized understanding. Case discussed with Dr. Gao. - Lab Data Result diagrams: 02/06/20 22:23 02/06/20 22:23 Lab Results 02/06/20 02/06/20 02/06/20 Range/Units 22:23 22:23 23:39 WBC 6.2 (3.8-10.6) k/uL RBC 3.79 L (3.80-5.40) m/uL Hgb 9.2 L (11.4-16.0) gm/dL Hct 30.5 L (34.0-46.0) % MCV 80.6 (80.0-100.0) fL MCH 24.4 L (25.0-35.0) pg MCHC 30.3 L (31.0-37.0) g/dL RDW 17.7 H (11.5-15.5) % Plt Count 274 (150-450) k/uL Neutrophils % 58 % Lymphocytes % 29 % Monocytes % 8 % Eosinophils % 3 % Basophils % 0 % Neutrophils # 3.6 (1.3-7.7) k/uL Lymphocytes # 1.8 (1.0-4.8) k/uL Monocytes # 0.5 (0-1.0) k/uL Eosinophils # 0.2 (0-0.7) k/uL Basophils # 0.0 (0-0.2) k/uL Hypochromasia Marked Anisocytosis Slight Microcytosis Slight Sodium 132 L (137-145) mmol/L Potassium 3.7 (3.5-5.1) mmol/L Chloride 100 (98-107) mmol/L Carbon Dioxide 26 (22-30) mmol/L Anion Gap 6 mmol/L BUN 8 (7-17) mg/dL Creatinine 0.54 (0.52-1.04) mg/dL Est GFR (CKD-EPI)AfAm >90 (>60 ml/min/1.73 sqM) Est GFR (CKD-EPI)NonAf >90 (>60 ml/min/1.73 sqM) Glucose 109 H (74-99) mg/dL Calcium 8.7 (8.4-10.2) mg/dL Total Bilirubin 0.5 (0.2-1.3) mg/dL AST 25 (14-36) U/L ALT 10 (4-34) U/L Alkaline Phosphatase 67 (38-126) U/L Total Protein 5.9 L (6.3-8.2) g/dL Albumin 3.1 L (3.5-5.0) g/dL Coronavirus (PCR) Detected A (Not Detectd) Disposition Clinical Impression: 2019 novel coronavirus disease (COVID-19), Nausea and vomiting, Epigastric pain Disposition: HOME SELF-CARE Condition: Stable Instructions (If sedation given, give patient instructions): Abdominal Pain (ED) Additional Instructions: Please return to the Emergency Department if symptoms worsen or any other concerns. Use Zofran as needed for nausea and vomiting. Follow up with GI. Prescriptions: Ondansetron Odt [Zofran Odt] 4 mg PO Q8HR PRN #10 tab PRN Reason: Nausea Is patient prescribed a controlled substance at d/c from ED?: No Referrals: Nonstaff,Physician [Primary Care Provider] - 1-2 days
[2020-02-06 22:44] LABS: ALT 10 U/L (4-34); AST 25 U/L (14-36); African American GFR (CKD) >90 (>60 ml/min/1.73 sqM); Albumin 3.1 g/dL (3.5-5.0); Alkaline Phosphatase 67 U/L (38-126); Anion Gap 6 mmol/L; Blood Urea Nitrogen 8 mg/dL (7-17); Calcium 8.7 mg/dL (8.4-10.2); Carbon Dioxide 26 mmol/L (22-30); Chloride 100 mmol/L (98-107); Glucose 109 mg/dL (74-99); Non-African American GFR(CKD) >90 (>60 ml/min/1.73 sqM); Potassium 3.7 mmol/L (3.5-5.1); Sodium 132 mmol/L (137-145); Total Bilirubin 0.5 mg/dL (0.2-1.3); Total Protein 5.9 g/dL (6.3-8.2)
[2020-02-06 22:46] LABS: Anisocytosis Slight; Basophils % (A) 0 %; Eosinophils # (A) 0.2 k/uL (0-0.7); Eosinophils % (A) 3 %; HCT 30.5 % (34.0-46.0); HGB 9.2 gm/dL (11.4-16.0); Hypochromasia Marked; Lymphocytes # (A) 1.8 k/uL (1.0-4.8); Lymphocytes % (A) 29 %; MCH 24.4 pg (25.0-35.0); MCHC 30.3 g/dL (31.0-37.0); MCV 80.6 fL (80.0-100.0); Microcytosis Slight; Monocytes # (A) 0.5 k/uL (0-1.0); Monocytes % (A) 8 %; Neutrophils # (A) 3.6 k/uL (1.3-7.7); Neutrophils % (A) 58 %; Platelet Count 274 k/uL (150-450); RBC 3.79 m/uL (3.80-5.40); RDW 17.7 % (11.5-15.5); WBC 6.2 k/uL (3.8-10.6)
[2020-02-06] MEDS ORDERED: METOCLOPRAMIDE 5 MG/ML 2 ML VIAL IVP STA (23:31)
[2020-02-07] MEDS ORDERED: ONDANSETRON 4 MG ODT STARTER PACK 2 TAB BTL PO STA (00:50)
[2020-02-07 01:05] VITALS: BP 108/74; PULSE 80; TEMP 98
== END 2020-02-07 01:05 | disposition home or self-care (01) ==
LOC: EC 21:15
DX: U07.1 COVID-19 (principal); R10.13 Epigastric pain; R11.0 Nausea; F41.9 Anxiety disorder, unspecified; F32.9 Major depressive disorder, single episode, unspecified; K21.9 Gastro-esophageal reflux disease without esophagitis; F17.200 Nicotine dependence, unspecified, uncomplicated; Z79.899 Other long term (current) drug therapy; Z88.1 Allergy status to other antibiotic agents; Z98.84 Bariatric surgery status; Z90.49 Acquired absence of other specified parts of digestive tract; Z87.19 Personal history of other diseases of the digestive system
CPT/HCPCS: 36415; 80053; 85025; 87635; 99284; 96374; 96375 ×2; 96376; 96361; J2270; J2765; J2405; S0119